=== PATIENT | male | born 1955 | race Caucasian/White ===

== ENCOUNTER 2018-08-25 06:58 | Emergency (ER) | payer OTHER ==
[2018-08-25] MEDS ORDERED: ACETAMINOPHEN 325 MG TABLET ONE (07:38)
--- NOTE | 2018-08-25 08:54 | RAD REPORT ---
EXAM DESCRIPTION: RAD - Ankle Left 3 View - 08/25/2018 8:48 am CLINICAL HISTORY: PAIN COMPARISON: None FINDINGS: Left ankle and left foot - multiple projections are submitted Prominent soft tissue swelling is present particularly laterally. Small avulsion fragment is suspecte d adjacent to the lateral calcaneus. Vascular calcifications are evident. Calcaneal spurs are noted. A fracture of the foot is not detected.
--- NOTE | 2018-08-25 09:10 | RAD REPORT ---
EXAM DESCRIPTION: RAD - Ankle Right 3 View - 08/25/2018 8:50 am CLINICAL HISTORY: Deformity;Pain COMPARISON: No comparisons FINDINGS: Soft tissue swelling is present about the ankle, greatest laterally. No acute fracture or subluxation seen. Mild vascular calcification evident.
--- NOTE | 2018-08-25 09:11 | RAD REPORT ---
EXAM DESCRIPTION: RAD - Knee Right 3 View - 08/25/2018 8:53 am CLINICAL HISTORY: PAIN Fall COMPARISON: No comparisons FINDINGS: No evidence of acute fracture or dislocation. No suprapatellar joint fluid. Mild medial arnoldo int compartment space narrowing is seen.
--- NOTE | 2018-08-25 09:18 | ER ---
Nurse's Notes [facility] Name: Real Montiel Age: 63 yrs Sex: Male : 1955 Arrival Date: 08/25/2018 Time: 06:59 Bed 20 Private MD: Stevan Earl E Diagnosis: Sprain of ankle Presentation: 08/25 07:12 Presenting complaint: Patient states: R knee and L foot pain that began after falling ss from a standing position last night. Pt reports he fel because he is diabetic and his blood sugar was low. Transition of care: patient was not received from another setting of care. Onset of symptoms was August 25, 2018. Risk Assessment: Do you want to hurt yourself or someone else? Patient reports no desire to harm self or others. Initial Sepsis Screen: Does the patient meet any 2 criteria? No. Patient's initial sepsis screen is negative. Does the patient have a suspected source of infection? No. Patient's initial sepsis screen is negative. Note Pt reports that his last BGL was 170's. Care prior to arrival: None. 07:12 Method Of Arrival: Ambulatory ss 07:12 Acuity: GEOFF 4 ss Historical: - Allergies: 07:14 No Known Allergies; ss - PMHx: 07:14 Diabetes - IDDM; Hyperlipidemia; Hypertension; Myocardial infarction; ss - PSHx: 07:14 eyes; Tonsillectomy; Carpal Tunnel Repair; cardiac stent x1; ss - Immunization history:: Adult Immunizations unknown. - Social history:: Smoking status: Patient/guardian denies using tobacco, Patient/guardian denies using alcohol, street drugs, The patient lives with family. - Ebola Screening: : Patient denies exposure to infectious person Patient denies travel to an Ebola-affected area in the 21 days before illness onset. - Family history:: not pertinent. - Hospitalizations: : No recent hospitalization is reported. Screenin:15 Abuse screen: Denies threats or abuse. Denies injuries from another. Nutritional ss screening: No deficits noted. Tuberculosis screening: Never had TB. Fall Risk Fall in past 12 months (25 points). Secondary diagnosis (15 points) diabetic (episodes of dizziness secondary to hypoglycemia). No IV (0 pts). Ambulatory Aid- None/Bed Rest/Nurse Assist (0 pts). Gait- Normal/Bed Rest/Wheelchair (0 pts) Mental Status- Oriented to own ability (0 pts). Assessment: 07:30 General: Appears in no apparent distress. comfortable, Behavior is calm, cooperative. em Pain: Complains of pain in left leg and right leg. Neuro: Level of Consciousness is awake, alert, obeys commands, Oriented to person, place, time, situation. Cardiovascular: Patient's skin is warm and dry. Respiratory: Airway is patent Respiratory effort is even, unlabored, Respiratory pattern is regular, symmetrical. Derm: Skin is intact, Skin is pink, warm \T\ dry. Musculoskeletal: Circulation, motion, and sensation intact. Capillary refill Range of motion: limited in left ankle, right knee and right ankle. 07:35 General: The previous assessment is accurate. Call light remains within reach. at ss bedside.. 08:30 Reassessment: Patient appears in no apparent distress at this time. Patient and/or em family updated on plan of care and expected duration. Pain level reassessed. Patient is alert, oriented x 3, equal unlabored respirations, skin warm/dry/pink. 09:30 Reassessment: Patient appears in no apparent distress at this time. Patient and/or em family updated on plan of care and expected duration. Pain level reassessed. Patient is alert, oriented x 3, equal unlabored respirations, skin warm/dry/pink. Patient states feeling better. Vital Signs: 07:14 BP 149 / 46; Pulse 61; Resp 17; Temp 98.0(TE); Pulse Ox 97% on R/A; Weight 113.4 kg; Height 6 ft. 0 in. (182.88 cm); Pain 10/19; 09:30 BP 138 / 54; Pulse 59; Resp 18; Pulse Ox 99% on R/A; em 07:14 Body Mass Index 33.91 (113.40 kg, 182.88 cm) ss ED Course: 06:59 Patient arrived in ED. am2 06:59 Stevan Earl MD is Private Physician. am2 07:03 Basilio Marcelino MD is Attending Physician. ma2 07:13 Triage completed. ss 07:14 Arm band placed on right wrist. ss 07:15 Patient has correct armband on for positive identification. Placed in gown. Bed in low ss position. Call light in reach. Side rails up X 1. Adult w/ patient. Pulse ox on. NIBP on. 07:15 Patient maintains SpO2 saturation greater than 95% on room air. 07:18 Aldair Persaud LVN is Primary Nurse. em 08:47 X-ray completed. Portable x-ray completed in exam room. Patient tolerated procedure ag1 well. 08:48 XRAY Ankle RIGHT 3 view In Process Unspecified. EDMS 08:48 Knee Right 3 View XRAY In Process Unspecified. EDMS 08:48 Ankle Left 3 View XRAY In Process Unspecified. EDMS 08:48 Foot Left 3 View XRAY In Process Unspecified. EDMS 10:04 No provider procedures requiring assistance completed. Patient did not have IV access em during this emergency room visit. Administered Medications: 07:31 Drug: Tylenol 650 mg Route: PO; em 10:03 Follow up: Response: No adverse reaction; Pain is decreased em Outcome: 09:18 Discharge ordered by . yissel 10:04 Discharged to home with crutches, with family. em 10:04 Condition: good 10:04 Discharge instructions given to patient, family, Instructed on discharge instructions, follow up and referral plans. no drinking with medication, no driving heavy equipment, medication usage, crutch walking, Demonstrated understanding of instructions, follow-up care, medications, crutch walking, Prescriptions given X 1. 10:06 Patient left the ED. em Signatures: Dispatcher [employer] Aldair Brooks LVN LVN em Nneka Ramirez RN RN ss Gallaway, Ashley ag1 Silvia Kuhn am2 Basilio Marcelino MD MD ma2 Corrections: (The following items were deleted from the chart) 08:18 07:30 Musculoskeletal: Range of motion: limited in left ankle, right knee and right em ankle em
--- NOTE | 2018-08-25 09:19 | EDPHYS ---
Physician Documentation [facility] Name: Real Montiel Age: 63 yrs Sex: Male : 1955 Arrival Date: 08/25/2018 Time: 06:59 Bed 20 Private MD: Stevan Earl E ED Physician Basilio Marcelino HPI: 08/25 07:24 This 63 yrs old Male presents to ER via Ambulatory with complaints of Fall ma2 Injury, Foot Pain, Knee Pain. 07:24 Details of fall: The patient fell from an upright position. Onset: The symptoms/episode ma2 began/occurred suddenly, 12 hour(s) ago. Associated injuries: The patient sustained left foot right knee. Severity of symptoms: At their worst the symptoms were moderate. The patient has experienced a previous episode. Historical: - Allergies: 07:14 No Known Allergies; ss - PMHx: 07:14 Diabetes - IDDM; Hyperlipidemia; Hypertension; Myocardial infarction; ss - PSHx: 07:14 eyes; Tonsillectomy; Carpal Tunnel Repair; cardiac stent x1; ss - Immunization history:: Adult Immunizations unknown. - Social history:: Smoking status: Patient/guardian denies using tobacco, Patient/guardian denies using alcohol, street drugs, The patient lives with family. - Ebola Screening: : Patient denies exposure to infectious person Patient denies travel to an Ebola-affected area in the 21 days before illness onset. - Family history:: not pertinent. - Hospitalizations: : No recent hospitalization is reported. ROS: 07:24 Constitutional: Negative for fever, chills, and weight loss, Cardiovascular: Negative ma2 for chest pain, palpitations, and edema, Respiratory: Negative for shortness of breath, cough, wheezing, and pleuritic chest pain, Abdomen/GI: Negative for abdominal pain, nausea, diarrhea, and constipation, Skin: Negative for injury, rash, and discoloration, Neuro: Negative for headache, weakness, numbness, tingling, and seizure, Psych: Negative for depression, anxiety, suicide ideation, homicidal ideation, and hallucinations. 07:24 MS/extremity: Positive for pain, of the right leg and left leg, Negative for bite, contusion, swelling. 07:24 MS/extremity: Positive for tenderness and decreased rom at right knee and left ankle . Exam: 07:24 Constitutional: This is a well developed, well nourished patient who is awake, alert, ma2 and in no acute distress. Chest/axilla: Normal chest wall appearance and motion. Nontender with no deformity. No lesions are appreciated. Cardiovascular: Regular rate and rhythm with a normal S1 and S2. No gallops, murmurs, or rubs. Normal PMI, no JVD. No pulse deficits. Respiratory: Lungs have equal breath sounds bilaterally, clear to auscultation and percussion. No rales, rhonchi or wheezes noted. No increased work of breathing, no retractions or nasal flaring. Abdomen/GI: Soft, non-tender, with normal bowel sounds. No distension or tympany. No guarding or rebound. No evidence of tenderness throughout. Skin: Warm, dry with normal turgor. Normal color with no rashes, no lesions, and no evidence of cellulitis. Neuro: Awake and alert, GCS 15, oriented to person, place, time, and situation. Cranial nerves II-XII grossly intact. Motor strength 5/5 in all extremities. Sensory grossly intact. Cerebellar exam normal. Normal gait. 07:24 Musculoskeletal/extremity: ROM: limited active range of motion, limited passive range of motion, right knee and left ankle, Circulation is intact in all extremities. Sensation intact. Compartment Syndrome exam of affected extremity: is normal. Vital Signs: 07:14 BP 149 / 46; Pulse 61; Resp 17; Temp 98.0(TE); Pulse Ox 97% on R/A; Weight 113.4 kg; ss Height 6 ft. 0 in. (182.88 cm); Pain 1/10; 09:30 BP 138 / 54; Pulse 59; Resp 18; Pulse Ox 99% on R/A; em 07:14 Body Mass Index 33.91 (113.40 kg, 182.88 cm) ss MDM: 07:03 Patient medically screened. ma2 07:24 Differential diagnosis: abrasion, contusion, fracture, multiple trauma, sprain, strain. ma2 09:17 Data reviewed: vital signs, nurses notes, EMS record, lab test result(s), EKG. ma2 Counseling: I had a detailed discussion with the patient and/or guardian regarding: the historical points, exam findings, and any diagnostic results supporting the discharge/admit diagnosis, the presence of at least one elevated blood pressure reading (>120/80) during this emergency department visit, the need for outpatient follow up. Response to treatment: the patient's symptoms have markedly improved after treatment. 08/25 07:20 Order name: XRAY Ankle RIGHT 3 view; Complete Time: 09:16 ma2 08/25 07:20 Order name: Knee Right 3 View XRAY; Complete Time: : ma2 08/25 07:20 Order name: Ankle Left 3 View XRAY; Complete Time: : ma2 08/25 07:20 Order name: Foot Left 3 View XRAY ma2 08/25 09:19 Order name: Post-op Orthopedic Shoe; Complete Time: : ma2 08/25 09:19 Order name: Jack Wrap; Complete Time: : ma2 Administered Medications: 07:31 Drug: Tylenol 650 mg Route: PO; em 10:03 Follow up: Response: No adverse reaction; Pain is decreased em Disposition: 08/25/18 09:18 Discharged to Home. Impression: Sprain of ankle. - Condition is Stable. - Prescriptions for Tylenol- Codeine #3 300-30 mg Oral Tablet - take 2 tablet by ORAL route every 6 hours As needed; 30 tablet. - Medication Reconciliation Form, Thank You Letter, Antibiotic Education, Prescription Opioid Use form. - Follow up: Private Physician; When: Tomorrow; Reason: Continuance of care. Signatures: Dispatcher [employer] EDAldair Girard, CORPORATE TRAFFIC MANAGER CORPORATE TRAFFIC MANAGER Nneka Diop RN RN ss Alzahri, Mohammad, MD MD ma2 Corrections: (The following items were deleted from the chart) 10:06 09:18 08/25/2018 09:18 Discharged to Home. Impression: Sprain of ankle. Condition is em Stable. Forms are Medication Reconciliation Form, Thank You Letter, Antibiotic Education, Prescription Opioid Use. Follow up: Private Physician; When: Tomorrow; Reason: Continuance of care. ma2
[2018-08-25 10:13] VITALS: TEMP 98
[2018-08-25 10:14] VITALS: BP 138/54; O2SAT 99
== END 2018-08-25 10:06 | disposition home or self-care (01) ==
LOC: ER 06:58
DX: S93.402A Sprain of unspecified ligament of left ankle, initial encounter (principal); W19.XXXA Unspecified fall, initial encounter; M25.561 Pain in right knee; M77.32 Calcaneal spur, left foot; M79.9 Soft tissue disorder, unspecified; E11.9 Type 2 diabetes mellitus without complications; E78.5 Hyperlipidemia, unspecified; I10 Essential (primary) hypertension; I25.2 Old myocardial infarction; Z79.4 Long term (current) use of insulin
CPT/HCPCS: 99284

== ENCOUNTER 2021-02-02 16:43 | Inpatient (IN) | payer OTHER ==
--- OUTSIDE RECORDS SUMMARY | 2021-02-02 16:45 | XMS REPORT | Continuity of Care Document ---
:1955 Author Organization [facility] t Address [address] [place] [address] Care Team Providers Name Role Phone Unavailable Unavailable Unavailable Payers Payer Name Policy Type Policy Number Effective Date Expiration Date S ource Problems This patient has no known problems. Allergies, Adverse Reactions, Alerts Allergy Allergy Status Severity Reaction(s) Onset Inactive Treating Comm ents Source Name Type Date Date Clinician No Known DA Active U 2019-0 [facility] Allergie 4-18 Clear s 00:00: Clemons 00 [facility] No Known DA Active U 2004-0 [facility] Drug 8-30 Clear Intolera 00:00: Clemons nces 00 [facility] No Known DA Active U 2004-0 [facility] Contrast 8-30 Clear Allergie 00:00: Clemons s [facility] No Known DA Active U 2004-0 [facility] Drug 8-30 Clear Allergie 00:00: Clemons s [facility] No Known DA Active U 2004-0 [facility] Food 8-30 Clear Allergie 00:00: Clemons s [facility] No Known DA Active U 2004-0 [facility] Other 8-30 Clear Allergie 00:00: Clemons s [facility] Medications This patient has no known medications. Procedures This patient has no known procedures. Results Test Description Test Time Test Comments Results Result Comments Source GLUBED 2019-01-31 08:03:00 Test Item Value Reference Range Interpretation Comme nts GLUBED (test code = GLUBED) 172 MG/DL 70-110 H Performed by certified cinema operator at [facility] [id number] 06:42:00 Test Item Value Reference Range Interpretation Comments GLUBED (test code = 155 MG/DL 70-110 H Performe d by certified GLUBED) cinema operator at [facility] BASIC METABOLIC [id number] 13:04:00 Test Item Value Reference Range Interpretation Comments SODIUM (test code = NA) 141 mEq/L 134-147 N POTASSIUM (test code = 4.0 mEq/L 3.4-5.0 N K) CHLORIDE (test code = 103 mEq/L 100-108 N CL) CARBON DIOXIDE (test 33 mEq/L 21-33 N code = CO2) ANION GAP (test code = 9 0-20 N GAP) GLUCOSE (test code = 182 mg/dL 70-110 H GLU) BLOOD UREA NITROGEN 17 mg/dL 7-18 N (test code = BUN) GLOMERULAR FILTRATION 75.7 80-90 L Units of measure = RATE (test code = GFR) ml/mi n/1.73 m2 CREATININE (test code = 1.0 mg/dL 0.6-1.3 N CREAT) CALCIUM (test code = 8.7 mg/dL 8.0-10.5 N CA) CBC W/AUTO [id number] 13:01:00 Test Item Value Reference Range Interpretation Comments WHITE BLOOD CELL (test code = 6.17 x10 3/uL 4.5-11.0 N WBC) RED BLOOD CELL (test code = 4.86 x10 6/uL 4.00-5.60 N RBC) HEMOGLOBIN (test code = HGB) 14.8 g/dL 12.5-16.9 N HEMATOCRIT (test code = HCT) 42.5 % 37.5-50.7 N MEAN CELL VOLUME (test code = 87.4 fL 81.0-99.0 N MCV) MEAN CELL HGB (test code = MCH) 30.5 pg 27.0-33.0 N MEAN CELL HGB CONCETRATION 34.8 g/dL 33.0-37.0 N (test code = MCHC) RED CELL DISTRIBUTION WIDTH CV 12.0 % 11.5-14.5 N (test code = RDW) RED CELL DISTRIBUTION WIDTH SD 38.6 fL 37.0-54.0 N (test code = RDW-SD) PLATELET COUNT (test code = 235 x10 3/uL 150-400 N PLT) MEAN PLATELET VOLUME (test code 9.3 fL 7.0-9.0 H = MPV) NEUTROPHIL % (test code = NT%) 54.8 % 56.0-77.0 L IMMATURE GRANULOCYTE % (test 0.2 % 0.0-2.0 N code = IG%) LYMPHOCYTE % (test code = LY%) 29.2 % 14.0-32.0 N MONOCYTE % (test code = MO%) 10.7 % 4.8-9.0 H EOSINOPHIL % (test code = EO%) 4.5 % 0.3-3.7 H BASOPHIL % (test code = BA%) 0.6 % 0.0-2.0 N NUCLEATED RBC % (test code = 0.0 % 0-0 N NRBC%) NEUTROPHIL # (test code = NT#) 3.38 x10 3/uL 2.0-7.6 N IMMATURE GRANULOCYTE # (test 0.01 x10 3/uL 0.00-0.03 N code = IG#) LYMPHOCYTE # (test code = LY#) 1.80 x10 3/uL 1.0-3.8 N MONOCYTE # (test code = MO#) 0.66 x10 3/uL 0.1-0.8 N EOSINOPHIL # (test code = EO#) 0.28 x10 3/uL 0.0-0.2 H BASOPHIL # (test code = BA#) 0.04 x10 3/uL 0.0-0.2 N NUCLEATED RBC # (test code = 0.00 x10 3/uL 0.0-0.1 N NRBC#) MANUAL DIFF REQUIRED (test code NO = MDIFF) - XR CHEST 2 [id number] 12:26:00 FAX: Stevan Barnett Jr [phone] [place]: St: PRE FAX: Pedrito Hill Jr [phone] Name: SUAD MOTA [facility] Fredy Clemons : 1955 Age/S: 63/M [address] [place] [address] Unit #: [id number] Loc: [place] [address] Phys: Pedrito Odonnell Jr, MD Acct: G [id number] Dis Date: Status: PRE SDC PHONE #: [phone] Exam Date: 01/26/2019 1226 FAX #: [phone] Reason: LT WRIST DE QUERVAIN RELEASE EXAMS: CPT CODE: [id number] XR CHEST 2 V [id number] Patient Name: SUAD MOTA : 1955; Age: 63 years y/o Male MR: [id number] Study: - XR CHEST 2 V 01/26/2019 11:34 AM Ordering Physician: Pedrito Odonnell Jr, MD Comparison: None Clinical Indication: Preoperative clearance; LT WRIST DE QUERVAIN RELEASE Lungs are clear. Cardiomediastinal silhouette normal. No consolidation or pleural fluid collection is noted. Bony thorax grossly intact. No pulmonary venous vascular congestion. IMPRESSION: No acute cardiopulmonary process. SL: [id number] at 1226 Reported and signed by: Anand Hager M.D. CC: Stevan Earl Jr, MD; Pedrito Odonnell Jr, MD Technologist: Teetee Zepeda, RT(R), RTT Trnscrd Date/Time/By: 01/26/2019 (1222) : By: [email or web address] Orig Print D/T: S: 01/26/2019 ([id number]) PAGE 1 Signed Report
[2021-02-02] MEDS ORDERED: D50W 50 ML IV ONE (17:19)
--- NOTE | 2021-02-02 17:49 | RAD REPORT ---
EXAM DESCRIPTION: CT - Head C Spine Mpr Wo Con - 02/02/2021 5:27 pm CLINICAL HISTORY: Head and neck injury status post fall. Head and neck pain. Syncope COMPARISON: 2014 TECHNIQUE: Computed axial tomography of the head and cervical spine was obtained. Sagittal and coronal reconstruction was performed. All CT scans are performed using dose optimization technique as appropriate and may include automated exposure control or mA/KV adjustment according to patient size. FINDINGS: An intracranial bleed is not seen. The ventricles are normal in caliber. An extra-axial fl uid collection is not noted.Fluid within the visualized sinuses and mastoids is not seen A cervical fracture is not visualized. No dislocation is noted. Spondylosis involves the spine IMPRESSION: No acute intracranial abnormality is seen. A cervical fracture is not visualized. If the patient continues to have symptoms to suggest intracra nial /spinal cord pathology then MRI would be recommended
[2021-02-02 18:11] LABS: Absolute Lymphocytes (CBC) 0.9 K/uL (0.7-4.9); Basophils % 0.2 % (0-1.3); Lymphocytes % 6.9 % (15.3-44.8); MPV 7.9 fL (7.6-11.3)
[2021-02-02 18:12] LABS: Protime INR 1.11
[2021-02-02 18:24] LABS: Albumin 3.8 g/dL (3.4-5.0); Bilirubin Direct 0.3 mg/dL (0-0.2); Bilirubin Total 0.9 mg/dL (0.2-1.0); Magnesium 2.3 mg/dL (1.8-2.4); Potassium 3.4 mmol/L (3.5-5.1); Protein, Total 8.1 g/dL (6.4-8.2); Troponin (Emerg Dept Use Only) 0.11 ng/mL (0.0-0.045)
[2021-02-02] MEDS ORDERED: ASPIRIN 81 MG CHEWABLE TABLET ONE (19:03)
[2021-02-02] MEDS ORDERED: ENOXAPARIN 100 MG/ML SYR SQ ONE (19:19)
[2021-02-02] MEDS ORDERED: FUROSEMIDE 40 MG/4 ML VIAL ONE (19:19)
--- NOTE | 2021-02-02 19:21 | ER ---
Nurse's Notes [facility] Name: Real Montiel Age: 65 yrs Sex: Male : 1955 Arrival Date: 02/02/2021 Time: 16:50 Bed 5 Private MD: Diagnosis: Syncope and collapse;Elevated Troponin Presentation: 02/02 16:53 Chief complaint: EMS states: Toned out for hypoglycemia, BGL 27 on arrival, gave 250 mL jl7 of D10, BGL went up to 116 then down to 68 just prior to arrival. Pt did hit his head, did loose consciousness and takes Plavix. Care prior to arrival: IV initiated. 20 GA, in the left upper arm Glucose check: 27. Care prior to arrival: Medication(s) given: D10, 250 mL Glucose check: 68. Mechanism of Injury: Fall from standing position. Trauma event details: Injury occurred in the [facility], Injury occurred: at home. Injury occurred: February 02, 2021 Injury occurred at: 16:30. 16:53 Acuity: GEOFF 2 jl7 16:53 Method Of Arrival: EMS: [facility] jl7 17:03 Coronavirus screen: Client denies travel out of the [place] in the last 14 days. Ebola jl7 Screen: No symptoms or risks identified at this time. Initial Sepsis Screen: Does the patient meet any 2 criteria? No. Patient's initial sepsis screen is negative. Does the patient have a suspected source of infection? No. Patient's initial sepsis screen is negative. Risk Assessment: Do you want to hurt yourself or someone else? Patient reports no desire to harm self or others. Onset of symptoms was February 02, 2021 at 16:30. Trauma Activation: Alert Physician: ED Physician; Name: Wesley CASTRO, Jayleen PA; Notified At: 16:50; Arrived At: 16:50 Physician: General Surgeon; Name: ; Notified At: 16:50; Arrived At: Physician: Radiology; Name: ; Notified At: 16:50; Arrived At: Physician: Respiratory; Name: ; Notified At: 16:50; Arrived At: Physician: Lab; Name: ; Notified At: 16:50; Arrived At: Historical: - Allergies: 17:05 No Known Allergies; jl7 - PMHx: 17:05 Diabetes - IDDM; Diabetes Type 1; Hyperlipidemia; Hypertension; Myocardial infarction; jl7 - PSHx: 17:05 eyes; Tonsillectomy; Carpal Tunnel Repair; cardiac stent x1; jl7 - Immunization history:: Adult Immunizations unknown. - Social history:: Smoking status: unknown. Screenin:53 Abuse screen: Denies threats or abuse. Denies injuries from another. Tuberculosis jl7 screening: No symptoms or risk factors identified. 17:05 Nutritional screening: No deficits noted. Fall Risk IV access (20 points). Total Quiros jl7 Fall Scale indicates No Risk (0-24 pts). Primary Survey: 16:53 NO uncontrolled hemorrhage observed. Breathing/Chest: Respiratory pattern: regular, jl7 Respiratory effort: spontaneous, unlabored, Chest inspection: symmetrical rise and fall of the chest. Circulation: Cardiac rhythm: sinus rhythm Pulses: palpable right radial artery and left radial artery. Skin color: pink, Skin temperature: warm. Disability Alert. Exposure/Environment: There is no evidence of uncontrolled external bleeding. Obvious injury(ies) are noted at this time: minor abrasions A warming method has been applied: A warm blanket has been provided to the patient. 17:50 Reassessment Airway Airway Patent Oxygen No O2 Oral cavity Clear Trachea Midline jd3 Breathing/Chest Respiratory pattern Regular Respiratory effort Spontaneous Unlabored Chest inspection Symmetrical Circulation Heart rhythm Sinus rhythm Color [place] Temperature Warm Disability Alert. Assessment: 16:53 General: Appears in no apparent distress. uncomfortable, Behavior is calm, cooperative, jl7 appropriate for age. Pain: Denies pain. Neuro: Level of Consciousness is awake, alert, obeys commands, Oriented to person, place, time, situation. Cardiovascular: Patient's skin is warm and dry. Respiratory: Airway is patent Respiratory effort is even, unlabored, Respiratory pattern is regular, symmetrical. Derm: Skin is pink, warm \T\ dry. Injury Description: Abrasion sustained to forehead, left side of the back of head and right hand is dirty, was sustained 30-60 minutes ago. 17:23 Reassessment: Patient appears in no apparent distress at this time. No changes from jd3 previously documented assessment. Patient and/or family updated on plan of care and expected duration. Pain level reassessed. Patient is alert, oriented x 3, equal unlabored respirations, skin warm/dry/pink. Neuro: Level of Consciousness is awake, alert, obeys commands, Oriented to person, place, time, situation. 18:25 Reassessment: Patient appears in no apparent distress at this time. Patient and/or jd3 family updated on plan of care and expected duration. Pain level reassessed. Patient is alert, oriented x 3, equal unlabored respirations, skin warm/dry/pink. Patient denies pain at this time. 22:15 Reassessment: Patient and/or family updated on plan of care and expected duration. Pain ea level reassessed. Patient is alert, oriented x 3, equal unlabored respirations, skin warm/dry/pink. Report given to receiving nurse on fourth floor. Vital Signs: 16:53 BP 129 / 106; Pulse 71; Resp 17; Temp 97.7; Pulse Ox 95% ; Weight 117.93 kg; Height 6 jl7 ft. 1 in. (185.42 cm); Pain 0/10; 18:25 Pulse 83; Resp 17 S; Pulse Ox 97% on R/A; jd3 16:53 Body Mass Index 34.30 (117.93 kg, 185.42 cm) jl7 Julieth Coma Score: 16:53 Eye Response: spontaneous(4). Verbal Response: oriented(5). Motor Response: obeys jl7 commands(6). Total: 15. Trauma Score (Adult): 16:53 Eye Response: spontaneous(1); Verbal Response: oriented(1); Motor Response: obeys jl7 commands(2); Systolic BP: > 89 mm Hg(4); Respiratory Rate: 10 to 29 per min(4); [place] Score: 15; Trauma Score: 12 ED Course: 16:50 Patient arrived in ED. aa5 16:52 Tyson Olson MD is Attending Physician. fariha 16:53 Patient has correct armband on for positive identification. Bed in low position. Call jl7 light in reach. Side rails up X 1. 16:53 Patient maintains SpO2 saturation greater than 95% on room air. Thermoregulation: warm jl7 blanket given to patient. 16:55 [facility] cp 16:56 Triage completed. jl7 16:57 Beaulieu, James, RN is Primary Nurse. jd3 17:05 Arm band placed on right wrist. jl7 17:05 devulcanizer head on. Pulse ox on. NIBP on. jl7 17:21 Side rails up X2. Adult w/ patient. Pillow given. devulcanizer head on. Pulse ox on. NIBP mh5 on. 17:21 EKG done, by ED staff, reviewed by Tyson Olson MD. mh5 17:27 CT Head C Spine In Process Unspecified. EDMS 18:57 XRAY Chest (1 view) In Process Unspecified. EDMS 19:20 Raúl Barraza MD is Hospitalizing Provider. cp 22:14 No provider procedures requiring assistance completed. Patient admitted, IV remains in ea place. Administered Medications: 17:28 Drug: D50W 50 ml Route: IVP; Site: left upper arm; jd3 18:20 Follow up: Response: No adverse reaction jd3 18:54 Drug: Aspirin Chewable Tablet 324 mg Route: PO; jd3 19:25 Drug: Lovenox (enoxaparin) 1 mg/kg Route: Sub-Q; Site: abdomen; rv 19:25 Drug: Lasix (furosemide) 40 mg Route: IVP; Site: left upper arm; rv Outcome: 19:21 Decision to Hospitalize by Provider. cp 22:14 Admitted to Med/surg accompanied by tech, room 431, with chart, Report called to ea Receiving nurse on fourth floor 22:14 Condition: stable 22:14 Instructed on the need for admit, Demonstrated understanding of instructions. 22:19 Patient left the ED. ea Signatures: Dispatcher [employer] Tyson Anton MD MD cha Calderon, Audri, RN RN aa5 Tyson Clemens PA PA Argelia Mina 5 Rosalba Argueta RN RN jl7 Dulce Leigh RN RN James Martinez, RN RN Alex Siu, RN RN rv
--- NOTE | 2021-02-02 19:21 | EDPHYS ---
Physician Documentation [facility] Name: Real Montiel Age: 65 yrs Sex: Male : 1955 Arrival Date: 02/02/2021 Time: 16:50 Bed 5 Private MD: ED Physician Tyson Olson HPI: 02/02 17:00 This 65 yrs old Male presents to ER via EMS with complaints of low blood cp sugar. 17:00 The patient has experienced syncope, lost consciousness. cp 17:00 Onset: The symptoms/episode began/occurred today, at an unknown time. Duration: This cp was a single episode, that lasted an unknown period of time. Context: the episode(s) was witnessed, by no one, the downtime is unknown, occurred at home, Just prior to the episode the patient experienced unknown symptoms. Associated injury: Head/face: lower lip, contusion. Current symptoms: Currently, the patient is not experiencing any symptoms. Patient found by family member after hospitalized asked to check on patient. EMS reports blood sugar level of 37 upon arrival. Historical: - Allergies: 17:05 No Known Allergies; jl7 - PMHx: 17:05 Diabetes - IDDM; Diabetes Type 1; Hyperlipidemia; Hypertension; Myocardial infarction; jl7 - PSHx: 17:05 eyes; Tonsillectomy; Carpal Tunnel Repair; cardiac stent x1; jl7 - Immunization history:: Adult Immunizations unknown. - Social history:: Smoking status: unknown. ROS: 17:05 Constitutional: Negative for body aches, chills, fever, poor PO intake. cp 17:05 Eyes: Negative for injury, pain, redness, and discharge. cp 17:05 Cardiovascular: Positive for edema, Negative for chest pain, palpitations. 17:05 Respiratory: Negative for cough, shortness of breath, wheezing. 17:05 Abdomen/GI: Negative for abdominal pain, nausea, vomiting, and diarrhea, black/tarry stool, rectal bleeding. 17:05 Back: Negative for pain at rest, pain with movement. 17:05 : Negative for urinary symptoms. 17:05 Neuro: Positive for syncope, Negative for altered mental status, dizziness, weakness. 17:05 All other systems are negative. Exam: 17:10 Constitutional: The patient appears in no acute distress, alert, awake, cp non-diaphoretic, non-toxic, well developed, well nourished, obese. 17:10 Head/Face: Normocephalic, atraumatic. cp 17:10 Eyes: Periorbital structures: appear normal, Pupils: equal, round, and reactive to light and accomodation, Extraocular movements: intact throughout, Conjunctiva: normal, no exudate, no injection, Sclera: no appreciated abnormality, Lids and lashes: appear normal, bilaterally. 17:10 ENT: External ear(s): are unremarkable, Nose: is normal, Mouth: Lips: mild swelling noted to lower lip, Posterior pharynx: Airway: no evidence of obstruction, patent. 17:10 Neck: C-spine: vertebral tenderness, is not appreciated, crepitus, is not appreciated, ROM/movement: is normal, is supple, without pain, no range of motions limitations. 17:10 Chest/axilla: Inspection: normal, Palpation: is normal, no crepitus, no tenderness. 17:10 Cardiovascular: Rate: normal, Rhythm: regular, Edema: ankle edema, that is mild, JVD: is not appreciated. 17:10 Respiratory: the patient does not display signs of respiratory distress, Respirations: normal, no use of accessory muscles, no retractions, labored breathing, is not present, Breath sounds: decreased breath sounds, are not appreciated, stridor, is not appreciated, wheezing: is not appreciated. 17:10 Abdomen/GI: Inspection: abdomen appears normal, Palpation: abdomen is soft and non-tender, in all quadrants. 17:10 Back: pain, is absent, ROM is normal. 17:10 Neuro: Orientation: to person, place \T\ time. Mentation: is normal, Cerebellar function: is grossly normal, Motor: moves all fours, strength is normal, Sensation: is normal. 17:23 ECG was reviewed by the Attending Physician. cp 18:50 : Rectal exam: Guaiac testing: results were negative for occult blood. cp Vital Signs: 16:53 BP 129 / 106; Pulse 71; Resp 17; Temp 97.7; Pulse Ox 95% ; Weight 117.93 kg; Height 6 jl7 ft. 1 in. (185.42 cm); Pain 0/10; 18:25 Pulse 83; Resp 17 S; Pulse Ox 97% on R/A; jd3 16:53 Body Mass Index 34.30 (117.93 kg, 185.42 cm) jl7 Julieth Coma Score: 16:53 Eye Response: spontaneous(4). Verbal Response: oriented(5). Motor Response: obeys jl7 commands(6). Total: 15. Trauma Score (Adult): 16:53 Eye Response: spontaneous(1); Verbal Response: oriented(1); Motor Response: obeys jl7 commands(2); Systolic BP: > 89 mm Hg(4); Respiratory Rate: 10 to 29 per min(4); Julieth Score: 15; Trauma Score: 12 MDM: 16:52 Patient medically screened. fariha 19:00 Data reviewed: vital signs, nurses notes, lab test result(s), EKG, radiologic studies, cp CT scan, plain films. 19:00 Test interpretation: by ED physician or midlevel provider: ECG, plain radiologic cp studies. Counseling: I had a detailed discussion with the patient and/or guardian regarding: the historical points, exam findings, and any diagnostic results supporting the discharge/admit diagnosis, lab results, radiology results, the need for further work-up and treatment in the hospital. 02/02 16:57 Order name: Basic Metabolic Panel 02/02 16:57 Order name: CBC with Diff cp 02/02 16:57 Order name: LFT's cp 02/02 16:57 Order name: Magnesium cp 02/02 16:57 Order name: NT PRO-BNP cp 02/02 16:57 Order name: PT-INR cp 02/02 16:57 Order name: Troponin (emerg Dept Use Only) cp 02/02 16:57 Order name: CK cp 02/02 16:57 Order name: Urine Microscopic Only cp 02/02 16:57 Order name: Basic Metabolic Panel; Complete Time: 18:39 EDMS 02/02 18:39 Interpretation: Normal except: K 3.4; BUN 20; GFR 68. cp 02/02 16:57 Order name: CBC with Automated Diff; Complete Time: 18:39 EDMS 02/02 18:39 Interpretation: Normal except: WBC 12.60; MCV 89.0; LAILA% 85.0; LYM% 6.9; NEUT A 10.8. cp 02/02 16:57 Order name: Liver (Hepatic) Function; Complete Time: 18:39 EDMS 02/02 16:57 Order name: Magnesium; Complete Time: 18:39 EDMS 02/02 16:57 Order name: NT PRO-BNP; Complete Time: 18:39 EDNE 02/02 16:50 Order name: Diet Regular; Complete Time: 16:51 aa5 02/02 16:57 Order name: XRAY Chest (1 view); Complete Time: 19:32 cp 02/02 19:32 Interpretation: Report reviewed. 02/02 16:57 Order name: EKG; Complete Time: 16:58 02/02 16:57 Order name: Cardiac monitoring; Complete Time: 16:58 cp 02/02 16:57 Order name: Protime (+INR); Complete Time: 18:39 EDNE 02/02 16:57 Order name: Troponin (Emerg Dept Use Only); Complete Time: 18:39 EDNE 02/02 18:46 Interpretation: Abnormal: TROPED 0.11. 02/02 16:57 Order name: Creatine Phosphokinase; Complete Time: 18:39 EDNE 02/02 16:59 Order name: Diet Ada 2000 Rios; Complete Time: 16:59 02/02 16:59 Order name: CT Head C Spine; Complete Time: 18:02 02/02 18:02 Interpretation: Reviewed report. 02/02 17:17 Order name: Glucose, Ancillary Testing; Complete Time: 17:41 EDNE 02/02 20:52 Order name: SARS-COV-2 RT PCR [facility] 02/02 16:57 Order name: EKG - Nurse/Tech; Complete Time: 17:18 02/02 16:57 Order name: IV Saline Lock; Complete Time: 16:58 02/02 16:57 Order name: Labs collected and sent; Complete Time: 17:19 02/02 16:57 Order name: O2 Per Protocol; Complete Time: 16:58 02/02 16:57 Order name: O2 Sat Monitoring; Complete Time: 16:58 02/02 16:57 Order name: Urine Dipstick-Ancillary (obtain specimen); Complete Time: 16:58 cp EC:23 Rate is 61 beats/min. Rhythm is regular. ND interval is normal. QRS interval is normal. cp QT interval is normal. T waves are Inverted in lead aVR. Interpreted by me. Reviewed by me. Administered Medications: 17:28 Drug: D50W 50 ml Route: IVP; Site: left upper arm; jd3 18:20 Follow up: Response: No adverse reaction jd3 18:54 Drug: Aspirin Chewable Tablet 324 mg Route: PO; jd3 19:25 Drug: Lovenox (enoxaparin) 1 mg/kg Route: Sub-Q; Site: abdomen; rv 19:25 Drug: Lasix (furosemide) 40 mg Route: IVP; Site: left upper arm; rv Disposition: 02/03 07:06 Co-signature as Attending Physician, Tyson Olson MD I agree with the assessment and fariha plan of care. Disposition: 02/02/21 19:21 Hospitalization ordered by Raúl Barraza for Inpatient Admission. Preliminary diagnosis are Syncope and collapse, Elevated Troponin. - Bed requested for Telemetry/MedSurg (Inpatient). - Status is Inpatient Admission. ea - Condition is Stable. - Problem is new. - Symptoms have improved. Signatures: Dispatcher [employer] [facility] Iman Jones, RN Tyson Santos MD MD cha Page, Corey, PA PA Rosalba Ffoana, RN RN jl7 Dulce Leigh RN James Weston ea RN RN jd3 Alex Brown RN RN rv Corrections: (The following items were deleted from the chart) 02/02 19:53 19:27 CORONAVIRUS+ ordered. [facility] EDMS 21:34 19:21 Hospitalization Ordered by Raúl Barraza MD for Inpatient Admission. Preliminary dw diagnosis is Syncope and collapse; Elevated Troponin. Bed requested for Telemetry/MedSurg (Inpatient). Status is Inpatient Admission. Condition is Stable. Problem is new. Symptoms have improved. cp 22:19 21:34 02/02/2021 19:21 Hospitalization Ordered by Raúl Barraza MD for Inpatient ea Admission. Preliminary diagnosis is Syncope and collapse; Elevated Troponin. Bed requested for Telemetry/MedSurg (Inpatient). Status is Inpatient Admission. Condition is Stable. Problem is new. Symptoms have improved. dw
--- NOTE | 2021-02-02 19:27 | RAD REPORT ---
EXAM DESCRIPTION: Davida Single View02/02/2021 6:57 pm CLINICAL HISTORY: Hypoglycemia. Hypertension COMPARISON: 2016 FINDINGS: The lungs appear clear of acute infiltrate. The heart is normal size IMPRESSION: No acute abnormalities displayed
[2021-02-02] MEDS ORDERED: ONDANSETRON 4 MG/2 ML VIAL IV PRN (23:09)
[2021-02-02] MEDS ORDERED: ATORVASTATIN 40 MG TAB PO SCH (23:09)
--- NOTE | 2021-02-02 23:30 | P.HP ---
Certification for Inpatient Patient admitted to: Inpatient With expected LOS: >2 Midnights Patient will require the following post-hospital care: None Practitioner: I am a practitioner with admitting privileges, knowledge of patient current condition, hospital course, and medical plan of care. Services: Services provided to patient in accordance with Admission requirements found in Title 42 Section 412.3 of the Code of Federal Regulations Patient History Date of Service: 02/02/21 Primary Care Provider: Dr. otero Reason for admission: NSTEMI, hypoglycemia History of Present Illness: 65-year-old male with history of diabetes mellitus type 2, hyperlipidemia, hypertension, CAD with previous stent presents emergency department after syncopal episode. Patient was out working in the [place] and noticed that his CGM was alarming for hypoglycemia, patient went into the house and was trying to find something to eat when he evidently passed out, patient's family had not heard from him and eventually went to check, is possible that he was unconscious for between 1 and 2 hr. Upon EMS arrival patient's blood sugar was in the 20s. Patient is given dextrose in transport to the hospital for evaluation in the emergency department. Chest x-ray, CT head C-spine negative for any acute findings. Lab significant for white blood cell count 12.6 potassium 3.4 glucose 106 troponin 0.11 BNP 306. Patient also noted to have bilateral lower extremity edema, patient reports that he has had swelling to this lower extremities for the past few years and was told by his primary care physician and actuarial consultant this is likely related to venous insufficiency and not related to his heart. Patient reports his last echocardiogram was approximately 3 years prior and he was told that it was normal. ED provider wishes to admit forNSTEMI, hypoglycemia. Allergies No Known Drug Allergies Allergy (Unknown, Verified 10/26/16 03:49) NKA No Known Allergies Allergy (Uncoded 10/29/16 22:15) Unknown Home Medications: Aspirin 81 mg PO DAILY 07/30/14 Atorvastatin Calcium [Lipitor*] 20 mg PO BEDTIME 07/30/14 Clopidogrel Bisulfate [Clopidogrel] 75 mg PO DAILY 07/30/14 Irbesartan [Avapro] 300 mg PO BEDTIME 07/30/14 [place]-3S/Dha/Epa/Fish Oil [Fish Oil 1,200 mg Softgel] 1,200 mg PO DAILY 07/30/14 Cefuroxime Axetil [Ceftin] 500 mg PO BID #10 tablet 10/28/16 - Past Medical/Surgical History Diabetic: Yes -: HTN -: Neuropathy -: [place] 2003 -: Diabetes mellitus type 2 -: Cardiac stents 2003 Psychosocial/ Personal History: Patient is retired, lives with family - Family History Father -: Heart disease, Lung disease, Cancer Notes: Colon cancer Mother -: Hypertension, Diabetes, Stroke, Cancer Notes: Breast cancer - Social History Smoking Status: Never smoker Alcohol use: No CD- Drugs: No Caffeine use: Yes Place of Residence: Home Review of Systems Unremarkable Physical Examination - Vital Signs Temperature: 97.7 F Blood Pressure: 129/106 Pulse: 83 Respirations: 17 - Physical Exam General: Alert, In no apparent distress HEENT: Atraumatic, PERRLA, Mucous membr. moist/pink Neck: Supple, 2+ carotid pulse no bruit, No LAD Respiratory: Clear to auscultation bilaterally, Normal air movement Cardiovascular: Regular rate/rhythm, Normal S1 S2 Gastrointestinal: Normal bowel sounds, No tenderness Musculoskeletal: No tenderness Integumentary: No rashes Neurological: Normal speech, Normal strength at 5/5 x4 extr, Normal tone, Normal affect - Studies Laboratory Data (last 24 hrs) 02/02/21 17:48: PT 12.8 H, INR 1.11 02/02/21 17:48: WBC 12.60 H, Hgb 16.2, Hct 48.0, Plt Count 227 02/02/21 17:48: Sodium 143, Potassium 3.4 L, BUN 20 H, Creatinine 1.09, Glucose 106, Magnesium 2.3, Total Bilirubin 0.9, AST 39 H, ALT 33, Alkaline Phosphatase 93 Assessment and Plan - Plan Assessment NSTEMI-history of CAD with previous stents Diabetes mellitus type 2 with hypoglycemia and syncope Hypertension Hyperlipidemia Plan NSTEMI-history of CAD with previous stents: Continue with full-dose Lovenox, monitor on telemetry, trend troponins, obtain and continue home medications. Cardiology consult in place. Diabetes mellitus type 2 with hypoglycemia and syncope: Continue to monitor patient's blood glucose level closely, patient reports that he has an insulin pump, this was discontinued upon arrival to the emergency department blood sugar has remained stable. Hypertension: Continue home medications as appropriate Hyperlipidemia: Continue home medications as appropriate. Discharge Plan: Home Plan to discharge in: 48 Hours - Advance Directives Does patient have a Living Will: No Does patient have a Durable POA for Healthcare: Yes - Code Status/Comfort Care Code Status Assessed: Yes (Full code) Critical Care: No Time Spent Managing Pts Care (In Minutes): 55
[2021-02-03] MEDS: INSULIN -REGULAR HUMAN 50 UNIT/0.5 ML ML SQ SCH ×4 (00:41→16:01)
[2021-02-03 05:20] LABS: Absolute Lymphocytes (CBC) 1.2 K/uL (0.7-4.9); Basophils % 0.4 % (0-1.3); Hematocrit 40.2 % (39.6-49.0); Lymphocytes % 12.3 % (15.3-44.8); MPV 8.7 fL (7.6-11.3); RBC Red Blood Cell Count 4.56 M/uL (4.33-5.43)
[2021-02-03 05:26] LABS: Albumin 3.1 g/dL (3.4-5.0); Bilirubin Total 0.9 mg/dL (0.2-1.0); Magnesium 1.9 mg/dL (1.8-2.4); Potassium 3.6 mmol/L (3.5-5.1); Protein, Total 6.5 g/dL (6.4-8.2); Thyroid Stimulating Hormone 1.1 uIU/mL (0.360-3.740)
[2021-02-03 05:29] LABS: Troponin I 1.27 ng/mL (0.0-0.045)
[2021-02-03 06:09] VITALS: BMI 27.1
[2021-02-03] MEDS ORDERED: Enoxaparin 120 MG/0.8 ML SYR SQ SCH ×2 (07:00)
[2021-02-03 07:26] LABS: Urine Appearance CLEAR (Clear); Urine Bilirubin NEGATIVE (Negative); Urine Blood NEGATIVE (Negative); Urine Color YELLOW (Yellow); Urine Glucose TRACE (Negative); Urine Protein NEGATIVE (Negative); Urine Urobilinogen 0.2 mg/dL (0.2-1.0)
[2021-02-03 07:48] LABS: Urine Microscopic Reflex NO UMIC
[2021-02-03] MEDS ORDERED: PNEUMOCOCCAL VACCINE 0.5 ML IMVAC ONE (09:00)
[2021-02-03] MEDS ORDERED: ASPIRIN EC 81 MG TAB PO SCH (09:00)
[2021-02-03] MEDS ORDERED: CLOPIDOGREL 75 MG TABLET PO SCH ×2 (09:00)
[2021-02-03] MEDS ORDERED: DOCOSAHEXANOIC AC/EPA 1000 MG PO SCH (09:00)
[2021-02-03] MEDS ORDERED: ASPIRIN 81 MG CHEWABLE TABLET PO SCH (09:00)
[2021-02-03 09:13] VITALS: O2SAT 95
--- NOTE | 2021-02-03 10:21 | RAD REPORT ---
EXAM DESCRIPTION: US - Extrem Venous W Compress Tomasz - 02/03/2021 10:01 am CLINICAL HISTORY: LE EDEMA TOMASZ COMPARISON: None. TECHNIQUE: Real-time sonographic evaluation of the bilateral lower extremity common femoral, superfi cial femoral, popliteal and posterior tibial veins was performed. FINDINGS: Normal compressibility, flow augmentation, phasic flow and spontaneous flow are identified in the left and right lower extremity common femoral, superficial femoral, popliteal and posterior t ibial veins. No intraluminal filling defects seen. IMPRESSION: No DVT in either lower extremity.
--- NOTE | 2021-02-03 11:14 | EKG ---
Test Date: 2021-02-02 Test Time: 17:17:47 Insurance Job Titles: [employer] MEASUREMENT RESULTS: Intervals: Rate: 61 HI: 180 QRSD: 82 QT: 438 QTc: 440 [place]: P: 65 HI: 180 QRS: 41 T: 55 INTERPRETIVE STATEMENTS: Normal sinus rhythm Normal ECG Compared to ECG 10/25/2016 15:37:29 Sinus bradycardia no longer present Sinus arrhythmia no longer present Electronically Signed On 02-03-21 11:13:25 CDT by Juan Pablo Donohue
[2021-02-03] MEDS ORDERED: POTASSIUM CL SA 10 MEQ TAB PO ONE (11:28)
--- NOTE | 2021-02-03 12:17 | CON ---
Date of Consultation: 02/03/2021 Reason For Consultation: The patient was admitted on 02/02/[address] Palencia' service. I saw the p atient on 02/03/2021 because of elevated troponin. History Of Present Illness: Mr. Montiel is a 65-year-old white male. He has a history of CAD status po st stent, diabetes, hypertension, dyslipidemia. He came in because of hypoglycemia and syncope. Den ied chest pain, nausea, vomiting, diaphoresis, PND, orthopnea, pedal edema, or palpitation. Denied a ny fever or chills. Troponin was positive at . He had a white count of 12,000. His gluco se was 272. His BNP was 306. EKG was normal. Chest x-ray was normal. CT of the head and cervical spine was normal. He stated that blood pressure was 180 systolic. Allergies: NONE. Review of Systems: Negative. Social History: Negative. Family History: Noncontributory. Medications: At home include aspirin, Lipitor, Plavix, Avapro, and fish oil. Physical Examination: General: Very pleasant. HEENT: Negative. Vital Signs: Stable, afebrile, sinus rhythm. Chest: Clear to auscultation and percussion. Cardiac: Revealed a regular rhythm and rate. No murmurs, gallops, or rubs. Abdomen: Benign. Extremities: Revealed no clubbing. Diagnostic Data: As stated earlier. Impression And Plan: Elevated troponin probably secondary to hypotension, hypertension, or hypoglyce rao. The patient has no chest pain. He has a normal EKG. I am doing a catheterization o n him only based on the troponin. I would recommend a 2D echocardiogram today and if it is normal, I will send him home and have him do a stress test. He is due for 1 this year anyway. His other prob lems diabetes, hypertension, dyslipidemia appeared to be controlled right now. It may be reasonable to increase the dose of Avapro or add a diuretic to his regimen. He should continue his aspirin, Lip itor, and fish oil. I will discuss the case with Dr. Palencia after the echocardiogram today. NB/MODL Voice ID: [id number] Report ID: [id number]
--- NOTE | 2021-02-03 13:55 | P.DS ---
Admission Date: 02/02/21 Discharge Date: 02/03/21 Primary Care Provider: Dr. Earl; Cardiology-Dr. Donohue Disposition: ROUTINE DISCHARGE Discharge Condition: GOOD Reason for Admission: NSTEMI, hypoglycemia Consultations: Cardiology-Dr. Donohue Procedures: COVID: Negative CT scan: FINDINGS: An intracranial bleed is not seen. The ventricles are normal in caliber. An extra-axial fluid collection is not noted.Fluid within the visualized sinuses and mastoids is not seen A cervical fracture is not visualized. No dislocation is noted. Spondylosis involves the spine IMPRESSION: No acute intracranial abnormality is seen. CXR: COMPARISON: 2017 FINDINGS: The lungs appear clear of acute infiltrate. The heart is normal size IMPRESSION: No acute abnormalities displayed Venous doppler: FINDINGS: Normal compressibility, flow augmentation, phasic flow and spontaneous flow are identified in the left and right lower extremity common femoral, superficial femoral, popliteal and posterior tibial veins. No intraluminal filling defects seen. IMPRESSION: No DVT in either lower extremity. ECHO: Medical Problem List: Syncope secondary to hypoglycemia with history of diabetes mellitus type 2 with insulin pump Elevated troponin likely related to above complicated with history of CAD Hypertension Hyperlipidemia Brief History of Present Illness: 65-year-old male with history of diabetes mellitus type 2, hyperlipidemia, hypertension, CAD with previous stent presents emergency department after syncopal episode. Patient was out working in the y[place] and noticed that his CGM was alarming for hypoglycemia, patient went into the house and was trying to find something to eat when he evidently passed out, patient's family had not heard from him and eventually went to check, is possible that he was unconscious for between 1 and 2 hr. Upon EMS arrival patient's blood sugar was in the 20s. Patient was given dextrose in transport to the hospital for evaluation in the emergency department. Chest x-ray, CT head C-spine negative for any acute findings. Lab significant for white blood cell count 12.6 potassium 3.4 glucose 106 troponin 0.11 BNP 306. EKG showed no significant abnormality. Patient was admitted for further evaluation and treatment. Hospital Course: Patient presented after syncopal episode secondary to hypoglycemia. Patient with history of diabetes mellitus with insulin pump. During the course of his evaluation troponin was slightly elevated. Patient was seen and evaluated by cardiology who knows the patient very well. Patient with history of CAD and prior stent, hypertension and hyperlipidemia. No significant EKG changes noted. Cardiology does not plan on heart catheterization. Echocardiogram performed showed no evidence of dysfunction. Cardiology plans to have the patient follow- up as an outpatient for cardiac stress test to further evaluate. No intervention required at this time. As mentioned above patient with hypoglycemia. Patient with insulin pump and diabetes. The importance of eating at least 3 meals a day and snacks to maintain blood sugar was enforced. Patient may continue with insulin pump. Patient to continue with insulin pump as directed by his PCP. Further adjustment may be required. Patient with hypertension, hyperlipidemia. At discharge patient will continue with his current medications including aspirin 81 mg daily, Plavix 25 mg daily, Avapro 300 mg daily, fish oil 1000 mg daily, and Lipitor 20 mg daily. Vital Signs/Physical Exam: Temp Pulse Resp BP Pulse Ox 98.2 F 67 18 133/67 100 02/03/21 12:00 02/03/21 12:00 02/03/21 12:00 02/03/21 12:00 02/03/21 12:00 General: Alert, In no apparent distress, Oriented x3, Cooperative HEENT: Atraumatic Neck: Supple Respiratory: Clear to auscultation bilaterally, Normal air movement Cardiovascular: Normal pulses, Regular rate/rhythm Gastrointestinal: Normal bowel sounds, Soft and benign, Non-distended, No tenderness, No masses, No rebound, No guarding Integumentary: No tenderness/swelling Neurological: Normal speech, Normal strength at 5/5 x4 extr, Normal tone, Normal affect Laboratory Data at Discharge: WBC 10.10 K/uL (4.3-10.9) D 02/03/21 03:25 Hgb 14.0 g/dL (13.6-17.9) 02/03/21 03:25 Hct 40.2 % (39.6-49.0) D 02/03/21 03:25 Plt Count 188 K/uL (152-406) 02/03/21 03:25 PT 12.8 SECONDS (9.5-12.5) H 02/02/21 17:48 INR 1.11 02/02/21 17:48 Sodium 142 mmol/L (136-145) 02/03/21 03:25 Potassium 3.6 mmol/L (3.5-5.1) 02/03/21 03:25 BUN 24 mg/dL (7-18) H 02/03/21 03:25 Creatinine 1.25 mg/dL (0.55-1.3) 02/03/21 03:25 Glucose 231 mg/dL (74-106) H 02/03/21 03:25 Magnesium 1.9 mg/dL (1.8-2.4) 02/03/21 03:25 Total Bilirubin 0.9 mg/dL (0.2-1.0) 02/03/21 03:25 AST 40 U/L (15-37) H 02/03/21 03:25 ALT 29 U/L (12-78) 02/03/21 03:25 Alkaline Phosphatase 76 U/L (45-117) 02/03/21 03:25 Troponin I 1.27 ng/mL (0.0-0.045) H* 02/03/21 03:25 Triglycerides 82 mg/dL (<150) 02/03/21 03:25 Cholesterol 124 mg/dL (<200) 02/03/21 03:25 HDL Cholesterol 59 mg/dL (40-60) 02/03/21 03:25 Cholesterol/HDL Ratio 2.10 02/03/21 03:25 Home Medications: Aspirin 81 mg PO DAILY 07/30/14 Atorvastatin Calcium [Lipitor*] 20 mg PO BEDTIME 07/30/14 Clopidogrel Bisulfate [Clopidogrel] 75 mg PO DAILY 07/30/14 Irbesartan [Avapro] 300 mg PO BEDTIME 07/30/14 [place]-3S/Dha/Epa/Fish Oil [Fish Oil 1,200 mg Softgel] 1,200 mg PO DAILY 07/30/14 Physician Discharge Instructions: Patient presented after syncopal episode secondary to hypoglycemia. Patient with history of diabetes mellitus with insulin pump. During the course of his evaluation troponin was slightly elevated. Patient was seen and evaluated by cardiology who knows the patient very well. Patient with history of CAD and prior stent, hypertension and hyperlipidemia. No significant EKG changes noted. Cardiology does not plan on heart catheterization. Echocardiogram performed showed no evidence of dysfunction. Cardiology plans to have the patient follow- up as an outpatient for cardiac stress test to further evaluate. No intervention required at this time. As mentioned above patient with hypoglycemia. Patient with insulin pump and diabetes. The importance of eating at least 3 meals a day and snacks to [place] in blood sugar was enforced. Patient may continue with insulin pump. Patient to continue with insulin pump as directed by his PCP. Further adjustment may be required. Patient with hypertension, hyperlipidemia. At discharge patient will continue with his current medications including aspirin 81 mg daily, Plavix 25 mg daily, Avapro 300 mg daily, fish oil 1000 mg daily, and Lipitor 20 mg daily. Diet: ADA Activity: Ad audrey Followup: NONE,NONE [Primary Care Provider] - Time spent managing pt's care (in minutes): 55
[2021-02-03 16:20] VITALS: BP 156/63; TEMP 98.5
[2021-02-03] MEDS ORDERED: IRBESARTAN 150 MG TAB PO SCH (21:00)
--- NOTE | 2021-02-04 08:03 | ECHO ---
HEIGHT: 6 ft 1 in WEIGHT: 206 lb 0 oz DATE OF STUDY: 02/03/[address]: Juan Pablo Donohue MD 2-DIMENSIONAL: YES M.MODE: YES DOPPLER: YES COLOR FLOW: YES TDS: YES PORTABLE: NO DEFINITY: NO BUBBLE STUDY: NO DIAGNOSIS: SYNCOPE, NSTEMI CARDIAC HISTORY: CATHERIZATION: YES SURGERY: NO PROSTHETIC VALVE: NO PACEMAKER: NO MEASUREMENTS (cm) DIASTOLIC (NORMALS) SYSTOLIC (NORMALS) IVSd 1.0 (0.6-1.2) LA Diam 3.2 (1.9-4.0) LVEF 60% LVIDd 4.1 (3.5-5.7) LVIDs 2.8 (2.0-3.5) %FS 31% LVPWd 1.1 (0.6-1.2) Ao Diam 2.2 (2.0-3.7) 2 DIMENSIONAL ASSESSMENT: RIGHT ATRIUM: NORMAL LEFT ATRIUM: NORMAL RIGHT VENTRICLE: NORMAL LEFT VENTRICLE: NORMAL TRICUSPID VALVE: NORMAL MITRAL VALVE: NORMAL PULMONIC VALVE: NORMAL AORTIC VALVE: NORMAL PERICARDIAL EFFUSION: NONE AORTIC ROOT: NORMAL LEFT VENTRICULAR WALL MOTION: NORMAL DOPPLER/COLOR FLOW: NORMAL COMMENTS: NORMAL 2D ECHOCARDIOGRAM WITH DOPPLER. NO WALL MOTION ABNORMALITY. NO EFFUSION. TECHNOLOGIST: Toñito SMITH
== END 2021-02-03 16:49 | disposition home or self-care (01) | DRG 637 ==
LOC: ER 16:43 → ERHOLD 19:59 → 4TH 21:50
PROVIDERS: ADMIT Family Medicine; ATTEND Family Medicine
DX: E11.649 Type 2 diabetes mellitus with hypoglycemia without coma (principal); I21.4 Non-ST elevation (NSTEMI) myocardial infarction; E78.5 Hyperlipidemia, unspecified; I10 Essential (primary) hypertension; I25.10 Atherosclerotic heart disease of native coronary artery without angina pectoris; I25.2 Old myocardial infarction; R60.9 Edema, unspecified; Z95.5 Presence of coronary angioplasty implant and graft; Z79.82 Long term (current) use of aspirin; Z79.4 Long term (current) use of insulin; Z96.41 Presence of insulin pump (external) (internal); Z79.02 Long term (current) use of antithrombotics/antiplatelets; Z79.899 Other long term (current) drug therapy; Z20.822 Contact with and (suspected) exposure to COVID-19
CPT/HCPCS: 36415; 70450; 71045; 72125; 80048; 80053; 80061; 80076; 81003; 82550; 82947; 83735; 83880; 84439; 84443; 84484; 85025; 85610; 93005; 93306; 93970; 96372; 96374; 96375; 99285; G0390; J1650; J1940; U0003

== ENCOUNTER 2022-09-20 09:38 | Emergency (ER) | payer OTHER ==
--- OUTSIDE RECORDS SUMMARY | 2022-09-20 09:43 | XMS REPORT | Continuity of Care Document ---
:1955 Author Organization [facility] [place] t Address [address] [place] [address] Care Team Providers Name Role Phone HECTOR EARL Primary Care Physician Unavailable Tavares Kennedy Attending Clinician Unavailable Aiyana Goldberg MD Attending Clinician AIYANA GOLDBERG Attending Clinician Unavailable Doctor Unassigned, [place] Attending Clinician Unavailable Yulia Yan RN Attending Clinician REUBEN LYNN Attending Clinician Unavailable REUBEN LYNN Admitting Clinician Unavailable Payers Payer Name Policy Type Policy Number Effective Date Expiration Date Neftali valadez [facility] 53 [id number] 2021 Common Sp elijah ring MCR 00:00:00 - [place] Problems Condition Condition Condition Status Onset Resolution Last Treating Co mments Source Name Details Category Date Date Treatment Clinician Date Cellulitis Cellulitis Disease Active U nivers 5-06 ity of 00:00: [place] 00 Medical Branch Acute on Acute on Disease Active Unive rs chronic chronic 5-05 [place] of diastolic [place] 00 Medical (congestiv (congestiv Br anch e heart e heart failure), failure), NYHA class NYHA class 3 3 Dyslipidem Dyslipidem Disease Active U nivers ia ia 5-05 ity of 00:00: [place] 00 Medical Branch Cellulitis Cellulitis Disease Active U nivers of left of left 5-04 ity of lower lower 00:00: [place] extremity extremity 00 Medi jessica Branch [id number] [place] [address] osteoarthr Spirit itis of - CHI left hand [facility] [id number] Nontraumat Problem Active Co mmon ic Spirit incomplete - CHI tear of right [facility] rotator Medical cuff Center [id number] 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 - [facility], [id number] Stented Problem Active Commo n coronary Spirit artery - CHI [facility] [id number] Essential Problem Active Comm on (primary) Spirit hypertensi - CHI on [facility] [id number] Coronary Problem Active 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 [id number] Mixed Problem Active Common hyperlipid Spirit emia - CHI [facility] Coronary CAD Problem Active Common artery (coronary Spirit disease artery - CHI disease) [facility] Congestive CHF Problem Active Commo n heart (congestiv Spirit failure e heart - CHI failure) [facility] [id number] Body mass Problem Active Com mon index Spirit [BMI] - CHI 34.0-34.9, [facility] [id number] Other Problem Active Common obesity Spirit due to - CHI excess [facility] Allergies, Adverse Reactions, Alerts Allergy Allergy Status Severity Reaction(s) Onset Inactive Treating Comm ents Source Name Type Date Date Clinician No Known DA Active U [facility] Allergie 4-18 Clear s 00:00: [place] 00 [facility] No Known DA Active U 0 [facility] Drug 8-30 Clear Intolera 00:00: Clemons nces 00 [facility] No Known DA Active U 2003- [facility] Contrast 8-30 Clear Allergie 00:00: Clemons s 00 [facility] No Known DA Active U 2003-0 [facility] Drug 8-30 Clear Allergie 00:00: Clemons s [facility] No Known DA Active U 2003- [facility] Food 8-30 Clear Allergie 00:00: Clemons s [facility] No Known DA Active U 2003- [facility] Other 8-30 Clear Allergie 00:00: Clemons s [facility] NO KNOWN Drug Active Univers ALLERGIE Class ity of S [facility] Social History Social Habit Start Date Stop Date Quantity Comments Source Exposure to Not sure University of SARS-CoV-2 [facility] (event) Branch History of Common Spirit - Tobacco Use [facility] Sex Assigned At Common Sp elijah - [facility] Tobacco use and 2021-03-02 2021-03-02 Former user Universi ty of exposure 00:00:00 00:00:00 [facility] Alcohol intake 2021-03-02 2021-03-02 Ex-drinker [facility] 00:00:00 00:00:00 (finding) [facility] History SDOH 2021-02-10 2021-02-10 21 University o f Education 00:00:00 00:00:00 [facility] Smoking Status Start Date Stop Date Source Former Smoker 2022-06-25 00:00:00 2022-06-25 00:00:00 [facility] pirit - [facility] Medications Ordered Filled Start Stop Current Ordering Indication Dosage Frequency Signature Comments Components Source Medication Medication Date Date Medication? Clinician (SIG) Name Name spironolact 2020- No [id number] 25mg Take 1 Univers one 25 mg 5-08 06-08 tablet by ity of tablet 00:00: 04:59 mouth [place] 00 :00 daily for Medical 30 days. Branch spironolact 2020- No [id number] 25mg Take 1 Univers one 25 mg 5-08 06-08 tablet by ity of tablet 00:00: 04:59 mouth [place] 00 :00 daily for Medical 30 days. Branch spironolact 2020- No [id number] 25mg Take 1 Univers one 25 mg 5-08 06-08 tablet by ity of tablet 00:00: 04:59 mouth [place] 00 :00 daily for Medical 30 days. Branch spironolact 2020- No [id number] 25mg Take 1 Univers one 25 mg 5-08 06-08 tablet by ity of tablet 00:00: 04:59 mouth [place] 00 :00 daily for Medical 30 days. [place] clopidogreL 2020-0 Yes 75mg Take 75 mg Univers (PLAVIX) 75 5-07 by mouth ity of mg tablet 19:27: daily. [address] aspirin 81 0 Yes 81mg Take 81 mg U nivers mg EC 5-07 by mouth ity of tablet 19:27: daily. [address] clopidogreL 0 Yes 75mg Take 75 mg Univers (PLAVIX) 75 5-07 by mouth ity of mg tablet 19:27: daily. [address] aspirin 81 0 Yes 81mg Take 81 mg U nivers mg EC 5-07 by mouth ity of tablet 19:27: daily. [address] clopidogreL 0 Yes 75mg Take 75 mg Univers (PLAVIX) 75 5-07 by mouth ity of mg tablet 19:27: daily. [address] aspirin 81 0 Yes 81mg Take 81 mg U nivers mg EC 5-07 by mouth ity of tablet 19:27: daily. [address] clopidogreL 0 Yes 75mg Take 75 mg Univers (PLAVIX) 75 5-07 by mouth ity of mg tablet 19:27: daily. [address] aspirin 81 0 Yes 81mg Take 81 mg U nivers mg EC 5-07 by mouth ity of tablet 19:27: daily. [address] furosemide 2020-0 2020- No [id number] 40mg Take 1 Univers 40 mg 5-07 06-07 tablet by ity of tablet 00:00: 04:59 mouth [place] 00 :00 daily for Medical 30 days. [place] furosemide 2020-0 2020- No [id number] 40mg Take 1 Univers 40 mg 5-07 06-07 tablet by ity of tablet 00:00: 04:59 mouth [place] 00 :00 daily for Medical 30 days. [place] furosemide 2020-0 2020- No [id number] 40mg Take 1 Univers 40 mg 5-07 06-07 tablet by ity of tablet 00:00: 04:59 mouth [place] 00 :00 daily for Medical 30 days. [place] furosemide 2020-0 2020- No [id number] 40mg Take 1 Univers 40 mg 5-07 06-07 tablet by ity of tablet 00:00: 04:59 mouth [place] 00 :00 daily for Medical 30 days. Branch clindamycin 1- No [id number] 300mg Take 1 Univers 300 mg 02-13 [id number] capsule by ity of capsule 00:00: 04:59 mouth 4 [place] 00 :00 (four) Medical times Branch daily for 7 days. carvediloL 2020- Yes 25mg Take 25 mg U nivers 25 mg 3-20 by mouth 2 ity of tablet 00:00: (two) [place] 00 times Medical daily. Branch carvediloL 2020-0 Yes 25mg Take 25 mg U nivers 25 mg 3-20 by mouth 2 ity of tablet 00:00: (two) [place] 00 times Medical daily. Branch carvediloL 2020-0 Yes 25mg Take 25 mg U nivers 25 mg 3-20 by mouth 2 ity of tablet 00:00: (two) [place] 00 times Medical daily. Branch carvediloL 2020-0 Yes 25mg Take 25 mg U nivers 25 mg 3-20 by mouth 2 ity of tablet 00:00: (two) [place] 00 times Medical daily. Branch GLUCAGEN Yes USE ONE Univer s HYPOKIT 1 3-15 (1) KIT ity of mg 00:00: DIRECTED [place] injection 00 NEEDED. Medi jessica MAY REPEAT Branch IN 15 MINS IF NEEDED. GLUCAGEN Yes USE ONE Univer s HYPOKIT 1 3-15 (1) KIT ity of mg 00:00: DIRECTED [place] injection 00 NEEDED. Medi jessica MAY REPEAT Branch IN 15 MINS IF NEEDED. GLUCAGEN Yes USE ONE Univer s HYPOKIT 1 3-15 (1) KIT ity of mg 00:00: DIRECTED [place] injection 00 NEEDED. Medi jessica MAY REPEAT Branch IN 15 MINS IF NEEDED. GLUCAGEN Yes USE ONE Univer s HYPOKIT 1 3-15 (1) KIT ity of mg 00:00: DIRECTED [place] injection 00 NEEDED. Medi jessica MAY REPEAT Branch IN 15 MINS IF NEEDED. irbesartan 2020- Yes 300mg Take 300 Un unique 300 mg 3-13 mg by ity of tablet 00:00: mouth [place] 00 daily. Medical Branch irbesartan 2021-0 Yes 300mg Take 300 Un unique 300 mg 3-13 mg by ity of tablet 00:00: mouth [place] 00 daily. Medical Branch irbesartan 2021-0 Yes 300mg Take 300 Un unique 300 mg 3-13 mg by ity of tablet 00:00: mouth [place] 00 daily. Medical Branch irbesartan 2021-0 Yes 300mg Take 300 Un unique 300 mg 3-13 mg by ity of tablet 00:00: mouth [place] 00 daily. Medical Branch HUMALOG 1-0 Yes USE 70 Univers U-100 3-11 UNITS VIA ity of INSULIN 100 00:00: INSULIN [place] as unit/mL 00 PUMP ONCE Medical solution A DAY. Branch HUMALOG 2020-0 Yes USE 70 Univers U-100 3-11 UNITS VIA ity of INSULIN 100 00:00: INSULIN [place] unit/mL 00 PUMP ONCE Medical solution A DAY. Branch HUMALOG 2020-0 Yes USE 70 Univers U-100 3-11 UNITS VIA ity of INSULIN 100 00:00: INSULIN [place] unit/mL 00 PUMP ONCE Medical solution A DAY. Branch HUMALOG 2020-0 Yes USE 70 Univers U-100 3-11 UNITS VIA ity of INSULIN 100 00:00: INSULIN [place] as unit/mL 00 PUMP ONCE Medical solution A DAY. Branch Bupivicaine Bupivicaine 2020-0 No 4mL Common [place] Argyle 6- Spirit 00:00: - CHI 00 [facility] Kenalog Kenalog 2020-0 No 40mg Common (Triamcinol (Triamcinol 6-09 S pirit one) one) 00:00: - CHI 00 [facility] Bupivicaine Bupivicaine 2020-0 No 4mL Common Arg[place] Argyle 6-09 Spirit 00:00: - CHI 00 [facility] Kenalog Kenalog 2020-0 No 40mg Common (Triamcinol (Triamcinol 6-09 S pirit one) one) 00:00: - CHI 00 [facility] Bupivicaine Bupivicaine 2020-0 No 4mL Common [place] Argyle 6-09 Spirit 00:00: - CHI 00 [facility] Kenalog Kenalog 2020-0 No 40mg Common (Triamcinol (Triamcinol 6-09 S pirit one) one) 00:00: - CHI 00 [facility] Bupivicaine Bupivicaine 2020-0 No 4mL Common Argyle Argyle - Spirit 00:00: - CHI 00 [facility] Kenalog Kenalog 2020-0 No 40mg Common (Triamcinol (Triamcinol 03-18 S pirit one) one) 00:00: - CHI 00 [facility] Contour Contour No Contour Next Test Next Test Next Test Carvedilol Carvedilol No 1{table BID Carvedilol 25 MG 25 MG t_with_ 25 MG food} Irbesartan Irbesartan No 1{table QD Irbesartan 300 MG 300 MG t} 300 MG Acetaminoph Acetaminoph No 1{capsu QID Acetaminop en 500 MG en 500 MG le_as_n hen 500 MG eeded} Clopidogrel Clopidogrel No 1{table QD Clopidogre Bisulfate Bisulfate t} l 75 MG 75 MG Bisulfate 75 MG Furosemide Furosemide No 1{table QD Furosemide 40 MG 40 MG t} 40 MG HumaLOG 100 HumaLOG 100 No HumaLOG UNIT/ML UNIT/ML 100 UNIT/ML Atorvastati Atorvastati No 1{table QD Atorvastat n Calcium n Calcium t} in Calcium 20 MG 20 MG 20 MG Glucagon Glucagon No Glucagon Emergency 1 Emergency 1 Emergency MG MG 1 MG Furosemide Furosemide No Furosemide 40 MG 40 MG 40 MG Clopidogrel Clopidogrel No 1{table QD Clopidogre Bisulfate Bisulfate t} l 75 MG 75 MG Bisulfate 75 MG Irbesartan Irbesartan No 1{table QD Irbesartan 300 MG 300 MG t} 300 MG Aspirin Aspirin No Aspirin Adult Low Adult Low Adult Low Dose Dose Dose Acetaminoph Acetaminoph No 1{capsu QID Acetaminop en 500 MG en 500 MG le_as_n hen 500 MG eeded} Furosemide Furosemide No Furosemide 40 MG 40 MG 40 MG Contour Contour No Contour Next Test Next Test Next Test Furosemide Furosemide No 1{table QD Furosemide 40 MG 40 MG t} 40 MG Carvedilol Carvedilol No 1{table BID Carvedilol 25 MG 25 MG t_with_ 25 MG food} Atorvastati Atorvastati No 1{table QD Atorvastat n Calcium n Calcium t} in Calcium 20 MG 20 MG 20 MG HumaLOG 100 HumaLOG 100 No HumaLOG UNIT/ML UNIT/ML 100 UNIT/ML Glucagon Glucagon No Glucagon Emergency 1 Emergency 1 Emergency MG MG 1 MG Glucagon Glucagon No Glucagon Emergency 1 Emergency 1 Emergency MG MG 1 MG Irbesartan Irbesartan No 1{table QD Irbesartan 300 MG 300 MG t} 300 MG Contour Contour No Contour Next Test Next Test Next Test Clopidogrel Clopidogrel No 1{table QD Clopidogre Bisulfate Bisulfate t} l 75 MG 75 MG Bisulfate 75 MG Carvedilol Carvedilol No 1{table BID Carvedilol 25 MG 25 MG t_with_ 25 MG food} HumaLOG 100 HumaLOG 100 No HumaLOG UNIT/ML UNIT/ML 100 UNIT/ML Atorvastati Atorvastati No 1{table QD Atorvastat n Calcium n Calcium t} in Calcium 20 MG 20 MG 20 MG Acetaminoph Acetaminoph No 1{capsu QID Acetaminop en 500 MG en 500 MG le_as_n hen 500 MG eeded} Furosemide Furosemide No 1{table QD Furosemide 40 MG 40 MG t} 40 MG Glucagon Glucagon No Glucagon Emergency 1 Emergency 1 Emergency MG MG 1 MG Irbesartan Irbesartan No 1{table QD Irbesartan 300 MG 300 MG t} 300 MG Contour Contour No Contour Next Test Next Test Next Test Clopidogrel Clopidogrel No 1{table QD Clopidogre Bisulfate Bisulfate t} l 75 MG 75 MG Bisulfate 75 MG Carvedilol Carvedilol No 1{table BID Carvedilol 25 MG 25 MG t_with_ 25 MG food} HumaLOG 100 HumaLOG 100 No HumaLOG UNIT/ML UNIT/ML 100 UNIT/ML Atorvastati Atorvastati No 1{table QD Atorvastat n Calcium n Calcium t} in Calcium 20 MG 20 MG 20 MG Acetaminoph Acetaminoph No 1{capsu QID Acetaminop en 500 MG en 500 MG le_as_n hen 500 MG eeded} Furosemide Furosemide No 1{table QD Furosemide 40 MG 40 MG t} 40 MG Acetaminoph Acetaminoph No 1{capsu QID Acetaminop en 500 MG en 500 MG le_as_n hen 500 MG eeded} Contour Contour No Contour Next Test Next Test Next Test HumaLOG 100 HumaLOG 100 No HumaLOG UNIT/ML UNIT/ML 100 UNIT/ML Carvedilol Carvedilol No 1{table BID Carvedilol 25 MG 25 MG t_with_ 25 MG food} Irbesartan Irbesartan No 1{table QD Irbesartan 300 MG 300 MG t} 300 MG Atorvastati Atorvastati No 1{table QD Atorvastat n Calcium n Calcium t} in Calcium 20 MG 20 MG 20 MG Glucagon Glucagon No Glucagon Emergency 1 Emergency 1 Emergency MG MG 1 MG Clopidogrel Clopidogrel No 1{table QD Clopidogre Bisulfate Bisulfate t} l 75 MG 75 MG Bisulfate 75 MG Furosemide Furosemide No 1{table QD Furosemide 40 MG 40 MG t} 40 MG Aspirin Aspirin 2021- No 1{table QD Aspirin Adult Low Adult Low 01-26 t} Adult Low Dose 81 MG Dose 81 MG 00:00 Dose 81 MG :00 Fish Oil Fish Oil 2021- No 1{capsu QD Fish Oil 1000 MG 1000 MG 01-26 le} 1000 MG 00:00 :00 Aspirin Aspirin 2021- No 1{table QD Aspirin Adult Low Adult Low 01-26 t} Adult Low Dose 81 MG Dose 81 MG 00:00 Dose 81 MG :00 Fish Oil Fish Oil 2021- No 1{capsu QD Fish Oil 1000 MG 1000 MG 01-26 le} 1000 MG 00:00 :00 Immunizations Ordered Filled Immunization Date Status Comments [facility] e Immunization Name Name FluAD FluAD 2021-09-08 Completed [facility] - 09:21:00 [facility] FluAD FluAD 2021-09-08 Completed [facility] - 09:21:00 [facility] FluAD FluAD 2021-09-08 Completed [facility] - 09:21:00 [facility] FluAD FluAD 2021-09-08 Completed [facility] - 09:21:00 [facility] FluAD FluAD 2021-09-08 Completed [facility] - 09:21:00 [facility] SARS-COV-2 COVID-19 2021-01-02 Completed Unive rsity of PFIZER VACCINE 00:00:00 [place] [facility] SARS-COV-2 COVID-19 2021-01-02 Completed Unive rsity of PFIZER VACCINE 00:00:00 [facility] SARS-COV-2 COVID-19 2021-01-02 Completed Unive rsity of PFIZER VACCINE 00:00:00 [facility] SARS-COV-2 COVID-19 2021-01-02 Completed Unive rsity of PFIZER VACCINE 00:00:00 [facility] SARS-COV-2 COVID-19 2020-12-12 Completed Unive rsity of PFIZER VACCINE 00:00:00 [place] [facility] SARS-COV-2 COVID-19 2020-12-12 Completed Unive rsity of PFIZER VACCINE 00:00:00 [facility] SARS-COV-2 COVID-19 2020-12-12 Completed Unive rsity of PFIZER VACCINE 00:00:00 [facility] SARS-COV-2 COVID-19 2020-12-12 Completed Unive rsity of PFIZER VACCINE 00:00:00 [facility] Tetanus Toxoid (TT) Tetanus Toxoid (TT) 2014-10-09 Completed [facility] - 09:21:00 [facility] Tetanus Toxoid (TT) Tetanus Toxoid (TT) 2014-10-09 Completed [facility] - 09:21:00 [facility] Tetanus Toxoid (TT) Tetanus Toxoid (TT) 2014-10-09 Completed [facility] - 09:21:00 [facility] Tetanus Toxoid (TT) Tetanus Toxoid (TT) 2014-10-09 Completed [facility] - 09:21:00 [facility] Tetanus Toxoid (TT) Tetanus Toxoid (TT) 2014-10-09 Completed [facility] - 09:21:00 [facility] Vital Signs Vital Name Observation Time Observation Value Comments Source height 2022-06-24 08:30:00 72.5 [in_i] [facility] weight 2022-06-24 08:30:00 255 [lb_av] [facility] temperature 2022-06-24 08:30:00 96.5 [degF] [facility] bmi 2022-06-24 08:30:00 34.11 kg/m2 [facility] blood pressure 2022-06-24 08:30:00 134 mm[Hg] [facility] systolic [facility] blood pressure 2022-06-24 08:30:00 78 mm[Hg] Common [facility] - diastolic [facility] height 2022-06-03 10:10:00 72.5 [in_i] [facility] weight 2022-06-03 10:10:00 254.3 [lb_av] Common [facility] temperature 2022-06-03 10:10:00 97.7 [degF] Common S pirit [facility] bmi 2022-06-03 10:10:00 34.01 kg/m2 Common S pirit [facility] oximetry 2022-06-03 10:10:00 94 % Common S pirit [facility] respiratory rate 2022-06-03 10:10:00 16 /min Comm on [facility] blood pressure 2022-06-03 10:10:00 129 mm[Hg] Common [facility] - systolic [facility] blood pressure 2022-06-03 10:10:00 60 mm[Hg] [facility] - diastolic [facility] weight 2022-02-01 13:00:00 259.6 [lb_av] [facility] temperature 2022-02-01 13:00:00 97.9 [degF] Common S pirit [facility] bmi 2022-02-01 13:00:00 34.72 kg/m2 Common S pirit [facility] oximetry 2022-02-01 13:00:00 97 % Common [facility] respiratory rate 2022-02-01 13:00:00 16 /min Comm on [facility] blood pressure 2022-02-01 13:00:00 125 mm[Hg] [facility] - systolic [facility] blood pressure 2022-02-01 13:00:00 59 mm[Hg] [facility] - diastolic [facility] height 2022-02-01 13:00:00 72.5 [in_i] Common S pirit [facility] height 2021-10-28 09:00:00 72.5 [in_i] Common S pirit [facility] weight 2021-10-28 09:00:00 258.8 [lb_av] Common [facility] temperature 2021-10-28 09:00:00 97.9 [degF] Common S pirit - [facility] bmi 2021-10-28 09:00:00 34.61 kg/m2 Common S [facility] oximetry 2021-10-28 09:00:00 97 % Common S [facility] respiratory rate 2021-10-28 09:00:00 16 /min Comm on [facility] blood pressure 2021-10-28 09:00:00 134 mm[Hg] Common [facility] - systolic [facility] blood pressure 2021-10-28 09:00:00 62 mm[Hg] Common [facility] - diastolic [facility] Systolic blood 2021-03-02 15:27:00 137 mm[Hg] Univer sity [facility] Diastolic blood 2021-03-02 15:27:00 68 mm[Hg] [facility] Heart rate 2021-03-02 15:27:00 56 /min [facility] Body temperature 2021-03-02 15:27:00 35.89 [facility] 2021-03-02 15:27:00 113.218 kg [facility] BMI 2021-03-02 15:27:00 33.85 kg/m2 [facility] Oxygen saturation in 2021-03-02 15:27:00 99 /min [facility] blood by [facility] Pulse oximetry Branch Procedures Procedure Date / Time Performed Performing Clinician [facility] e ASSIGNMENT OF BENEFITS 2021-03-02 15:17:15 Doctor Unassigned, No [facility] Encounters Start End Encounter Admission Attending Care Care Encounter Source Date/Time Date/Time Type Type Clinicians Facility Department ID 2022-08-30 Outpatient Kennedy, STLMLC STLC [id number] Common 14:36:02 Tavares [facility] 2022-06-24 Outpatient Kennedy, STLMLC STLC [id number] Common 08:37:02 Tavares [facility] 2022-02-25 Outpatient Kennedy, STLMLC STLC [id number] Common 09:36:01 Tavares [facility] 2021-11-04 Outpatient Kennedy, STLMLC STLMLC [id number] Common 14:37:19 Tavares [facility] 2022-06-24 2022-06-24 OFFICE STLMLC STLMLC [id number] Co mmon 00:00:00 00:00:00 VISIT Spirit ESTAB PT - CHI LEVEL 4 [facility] 2022-06-03 2022-06-03 OFFICE STLMLC STLMLC [id number] Co mmon 00:00:00 00:00:00 VISIT Spirit ESTAB PT - CHI LEVEL [address] [place] [address] 2022-02-01 2022-02-01 OFFICE STLMLC STLMLC [id number] Co mmon 00:00:00 00:00:00 VISIT Spirit ESTAB PT - CHI LEVEL [address] [place] [address] 2021-12-30 2021-12-30 (TEL) STLMLC STLMLC [id number] Co mmon 00:00:00 00:00:00 [facility] 2021-10-28 2021-10-28 OFFICE STLMLC STLMLC [id number] Co mmon 00:00:00 00:00:00 VISIT NEW Spir it PT LEVEL 4 [facility] 2021-03-02 2021-03-02 Office Yusuf [facility] [id number] Univers 10:19:49 10:47:52 Visit Aiyana Vu [id number] i ty [facility] [id number] Diana Espinozaesskip [phone] [place] [address] Branch [facility] 2021-03-02 2021-03-02 Outpatient R YUSUF [facility] [id number] Univers 10:15:00 10:15:00 AIYANA price of [facility] 2021-03-02 2021-03-02 Orders Doctor MCCLENDON [id number] Univers 00:00:00 00:00:00 Only Unassigned, GISELE [id number] ity of [place] [facility] [id number] Gabriel as [phone] [address] 2021-02-16 2021-02-16 [facility] [id number] Univers 00:00:00 00:00:00 of Care Yulia Perez [id number] it y of [place] [id number] Diana [place] [phone] [place] [address] Branch 2021-02-10 2021-02-13 Inpatient X SHANE [facility] [id number] Univers 16:08:00 14:25:00 REUBEN price [facility] Results Test Description Test Time Test Comments Results Result Comments Source GLUBED 2019-01-31 08:03:00 Test Item Value Reference Range Interpretation Comme nts GLUBED (test code = GLUBED) 172 MG/DL 70-110 H Performed by certified offset press operator helper at [facility] [id number] 06:42:00 Test Item Value Reference Range Interpretation Comments GLUBED (test code = 155 MG/DL 70-110 H Performe d by certified GLUBED) offset press operator helper at [facility] BASIC METABOLIC [id number] 13:04:00 Test Item Value Reference Range Interpretation [...] 8.7 mg/dL 8.0-10.5 N [place]) CBC W/AUTO [id number] 13:01:00 Test Item Value Reference Range Interpretation [...] MANUAL DIFF REQUIRED (test code NO = GABBY) - XR CHEST 2 [id number] 12:26:00 FAX: Hector Barnett Jr [phone] [place]: St: PRE FAX: Pedrito Hill Jr [phone] Name: SUAD MOTA [facility] [place] : 1955 Age/S: 63/M [address] [place] [address] Unit #: [id number] Loc: [place] [address] Phys: Pedrito Odonnell Jr, MD Acct: [id number] Dis Date: Status: PRE SDC PHONE #: [phone] Exam Date: 01/26/2019 1226 FAX #: [phone] Reason: LT WRIST DE QUERVAIN RELEASE EXAMS:CPT CODE: [id number] XR CHEST 2 V [id number] Patient Name: SUAD MOTA : 1955; Age: 63 years y/o Male MR: [id number] Study: - XR CHEST 2 V 01/26/2019 11:34 AM Ordering Physician: Pedrito Odonnell Jr, MD Comparison: None Clinical Indication: Preoperative clearance; LT WRIST DE QUERVAIN RELEASE Lungsare clear. Cardiomediastinal silhouette normal. No consolidation or pleural fluid collection is noted. Bony thorax grossly intact. No pulmonary venous vascular congestion. IMPRESSION: No acute cardiopulmonary process. SL: [id number] at 1226 Reported and signed by: Anand Hager M.D. CC: Hector Earl Jr, MD; Pedrito Odonnell Jr, MD Technologist: Teetee Zepeda, RT(R), RTT Trnscrd Date/Time/By: 01/26/2019 (1338) : By: [email or web address] Orig Print D/T: S: 01/26/2019 (1168) PAGE 1 Signed Report
--- NOTE | 2022-09-20 10:54 | RAD REPORT ---
EXAM DESCRIPTION: CT - Head Brain Wo Cont - 09/20/2022 10:30 am CLINICAL HISTORY: Head injury status post fall COMPARISON: 2011 TECHNIQUE: Computed axial tomography of the head was obtained. IV contrast was not requested. All CT scans are performed using dose optimization technique as appropriate and may include automated exposure control or mA/KV adjustment according to patient size. FINDINGS: An intracranial bleed is not seen . The ventricles are normal in caliber. No extra-axial fluid collection is noted. No significant hypodensity within the brain is seen. Fluid within the sinuses/ mastoids is not seen. IMPRESSION: No acute intracranial abnormality is seen. If patient's symptoms persist MRI of the bra in would be recommended.
--- NOTE | 2022-09-20 11:01 | RAD REPORT ---
EXAM DESCRIPTION: CT - Thorax Wo Con - 09/20/2022 10:30 am CLINICAL HISTORY: Chest pain status post fall COMPARISON: None TECHNIQUE: Computed axial tomography of the chest was obtained. Contrast was not requested. All CT scans are performed using dose optimization technique as appropriate and may include automated exposure control or mA/KV adjustment according to patient size. FINDINGS: The evaluation of mediastinum, eufemia and vessels is limited secondary to lack of IV contras t administration. A mediastinal hematoma is not seen. A pulmonary contusion is not noted A pleural effusion is not present. A pericardial effusion is not seen A few areas subsegmental atelectasis within the lung bases IMPRESSION: A few areas subsegmental atelectasis within the lung bases
--- NOTE | 2022-09-20 11:13 | ER ---
Nurse's Notes [facility] Name: Real Montiel Age: 67 yrs Sex: Male : 1955 Arrival Date: 09/20/2022 Time: 09:39 Bed IW2 Private MD: Diagnosis: Contusion of thorax Presentation: 09/20 09:51 Chief complaint: Patient states: fall, positive loc, rib pain - takes plavix. 5 Coronavirus screen: Vaccine status: Patient reports receiving the 2nd dose of the covid vaccine. Client denies travel out of the [place] in the last 14 days. Ebola Screen: Patient negative for fever greater than or equal to 101.5 degrees Fahrenheit, and additional compatible Ebola Virus Disease symptoms Patient denies exposure to infectious person. Patient denies travel to an Ebola-affected area in the 21 days before illness onset. Initial Sepsis Screen: Does the patient meet any 2 criteria? No. Patient's initial sepsis screen is negative. Does the patient have a suspected source of infection? No. Patient's initial sepsis screen is negative. Risk Assessment: Do you want to hurt yourself or someone else? Patient reports no desire to harm self or others. Onset of symptoms was September 17, 2022. 09:51 Method Of Arrival: Wheelchair [facility] 09:51 Acuity: GEOFF 3 5 Triage Assessment: 09:53 General: Appears in no apparent distress. uncomfortable, Behavior is calm, cooperative, jh5 appropriate for age. Pain: Complains of pain in ribs. Historical: - PMHx: 09:53 Diabetes - IDDM; Diabetes Type 1; Hyperlipidemia; Hypertension; Myocardial infarction; 5 - Immunization history:: Adult Immunizations up to date. - Social history:: Smoking status: Patient denies any tobacco usage or history of. Vital Signs: 09:51 BP 165 / 63; Pulse 69; Resp 16; Temp 97.7; Pulse Ox 96% ; Weight 99.79 kg; Height 6 ft. 5 0 in. (182.88 cm); Pain 6/10; 09:51 Body Mass Index 29.84 (99.79 kg, 182.88 cm) [facility] ED Course: 09:39 Patient arrived in ED. rg4 09:46 Milton Medina PA is PHCP. [facility] 09:46 Geronimo Bone DO is Attending Physician. [facility] 09:47 PHCP role handed off by Milton Medina PA jr8 09:47 Parminder Sabillon PA is PHCP. jr 09:53 Triage completed. [facility] 09:53 Arm band placed on right wrist. jh5 10:31 Thorax Wo Con In Process Unspecified. EDMS 10:31 Head Brain Wo Cont In Process Unspecified. EDMS Administered Medications: No medications were administered Outcome: 11:12 Discharge ordered by . ankit 11:21 Patient left the ED. ld1 Signatures: Dispatcher [employer] EDMS Milton Medina PA PA [facility] Parminder Sabillon PA PA jr8 Sandi Kim rg4 Florecita Nava, RN RN ld1 Orly Mary RN RN jh5
--- NOTE | 2022-09-20 11:13 | EDPHYS ---
Physician Documentation [facility] Name: Real Montiel Age: 67 yrs Sex: Male : 1955 Arrival Date: 09/20/2022 Time: 09:39 Bed IW2 Private MD: ED Physician Geronimo Bone HPI: 09/20 10:38 This 67 yrs old Male presents to ER via Wheelchair with complaints of Fall Injury, Low jr8 Blood Sugar. 10:38 Details of fall: The patient fell from an upright position, while standing. Onset: The jr8 symptoms/episode began/occurred acutely, 2 day(s) ago. Associated injuries: The patient sustained injury to the chest. Severity of symptoms: At their worst the symptoms were moderate, in the emergency department the symptoms are unchanged. The patient has not experienced similar symptoms in the past. The patient has not recently seen a physician. 67-year-old male patient that presented to the emergency room after having hypoglycemic episode 2 days ago at home. Stated that he became altered and passed out. Neighbor found him and helped him up. Managed to get his glucose under control at that time. EMS was called but declined transport at that time. He stated that he was slightly sore in both sides of his ribs but that he continues to have pain and trouble with motion and breathing since the fall injury. Patient admits to hitting his head the other day when he fell but denies any headache, blurred vision, dizziness, nausea, or any other focal deficits.. Historical: - PMHx: 09:53 Diabetes - IDDM; Diabetes Type 1; Hyperlipidemia; Hypertension; Myocardial infarction; jh5 - Immunization history:: Adult Immunizations up to date. - Social history:: Smoking status: Patient denies any tobacco usage or history of. ROS: 10:38 Eyes: Negative for injury, pain, redness, and discharge, ENT: Negative for injury, jr8 pain, and discharge, Neck: Negative for injury, pain, and swelling, Respiratory: Negative for shortness of breath, cough, wheezing, and pleuritic chest pain, Abdomen/GI: Negative for abdominal pain, nausea, vomiting, diarrhea, and constipation, Back: Negative for injury and pain, MS/Extremity: Negative for injury and deformity, Skin: Negative for injury, rash, and discoloration, Neuro: Negative for headache, weakness, numbness, tingling, and seizure. 10:38 Cardiovascular: Positive for chest pain. Exam: 10:38 Constitutional: This is a well developed, well nourished patient who is awake, alert, jr8 and in no acute distress. Head/Face: Normocephalic, patient has scabbing and abrasive lerenr to the left parietal region of his head Eyes: Pupils equal round and reactive to light, extra-ocular motions intact. Lids and lashes normal. Conjunctiva and sclera are non-icteric and not injected. Cornea within normal limits. Periorbital areas with no swelling, redness, or edema. ENT: Nares patent. No nasal discharge, no septal abnormalities noted. Tympanic membranes are normal and external auditory canals are clear. Oropharynx with no redness, swelling, or masses, exudates, or evidence of obstruction, uvula midline. Mucous membranes moist. Neck: Trachea midline, no thyromegaly or masses palpated, and no cervical lymphadenopathy. Supple, full range of motion without nuchal rigidity, or vertebral point tenderness. No Meningismus. Cardiovascular: Regular rate and rhythm with a normal S1 and S2. No gallops, murmurs, or rubs. Normal PMI, no JVD. No pulse deficits. Respiratory: Lungs have equal breath sounds bilaterally, clear to auscultation and percussion. No rales, rhonchi or wheezes noted. No increased work of breathing, no retractions or nasal flaring. Abdomen/GI: Soft, non-tender, with normal bowel sounds. No distension or tympany. No guarding or rebound. No evidence of tenderness throughout. Back: No spinal tenderness. No costovertebral tenderness. Full range of motion. Skin: Warm, dry with normal turgor. Normal color with no rashes, no lesions, and no evidence of cellulitis. MS/ Extremity: Pulses equal, no cyanosis. Neurovascular intact. Full, normal range of motion. Neuro: Awake and alert, GCS 15, oriented to person, place, time, and situation. Cranial nerves II-XII grossly intact. Motor strength 5/5 in all extremities. Sensory grossly intact. 10:38 Chest/axilla: Inspection: normal, Palpation: tenderness, that is moderate, of the right lateral anterior chest, left lateral anterior chest, right lateral posterior chest and left lateral posterior chest, that totally reproduces the patient's complaints. Vital Signs: 09:51 BP 165 / 63; Pulse 69; Resp 16; Temp 97.7; Pulse Ox 96% ; Weight 99.79 kg; Height 6 ft. jh5 0 in. (182.88 cm); Pain 6/10; 09:51 Body Mass Index 29.84 (99.79 kg, 182.88 cm) jh5 MDM: 09:55 Patient medically screened. jr8 11:10 Data reviewed: vital signs, nurses notes, radiologic studies, CT scan, and as a result, jr8 I will discharge patient. Data interpreted: Pulse oximetry: on room air is 96 %. Interpretation: normal. Counseling: I had a detailed discussion with the patient and/or guardian regarding: the historical points, exam findings, and any diagnostic results supporting the discharge/admit diagnosis, radiology results, the need for outpatient follow up, a family practitioner, to return to the emergency department if symptoms worsen or persist or if there are any questions or concerns that arise at home. ED course: Discussed with patient that there was no acute traumatic findings on his CT scan of his head or his chest. To continue to walk and get up every hour and to try and breathe as normal as he can as he does have some mild atelectasis and does not want to develop pneumonia. If worse or with persistence of symptoms to come back for further evaluation otherwise to follow-up with primary care to ensure that he is improving.. 09/20 10:01 Order name: Glucose, Ancillary Testing; Complete Time: 10:04 EDMS 09/20 10:11 Order name: Thorax Wo Con; Complete Time: 11:07 EDMS 09/20 10:26 Order name: Head Brain Wo Cont; Complete Time: 10:56 EDMS Administered Medications: No medications were administered Disposition: 12:30 Co-signature as Attending Physician, Geronimo Bone DO I was immediately available onsite ms3 in the emergency department for consultation in the care of the patient. Disposition Summary: 09/20/22 11:12 Discharge Ordered Location: Home jr8 Problem: new jr8 Symptoms: have improved jr8 Condition: Stable jr8 Diagnosis - Contusion of thorax jr8 Followup: jr8 - With: Private Physician - When: 2 - 3 days - Reason: Recheck today's complaints, Continuance of care, Re-evaluation by your physician Discharge Instructions: - Discharge Summary Sheet jr8 - Chest Wall Pain jr8 - Blunt Chest Trauma jr8 Forms: - Medication Reconciliation Form jr8 - Thank You Letter jr8 - Antibiotic Education jr8 - Prescription Opioid Use jr8 Signatures: Dispatcher [employer] EDMS Parminder Sabillon PA PA jr8 Geronimo Bone DO DO ms3 Orly Mary RN RN jh5 Corrections: (The following items were deleted from the chart) 10:26 10:18 CT-HEAD/BRAIN W/O CONTRAST ordered. EDMS EDMS
[2022-09-20 11:26] VITALS: BP 165/63; TEMP 97.7; O2SAT 96
== END 2022-09-20 11:21 | disposition home or self-care (01) ==
LOC: ER 09:38
DX: S20.20XA Contusion of thorax, unspecified, initial encounter (principal); E10.9 Type 1 diabetes mellitus without complications; I10 Essential (primary) hypertension
CPT/HCPCS: 70450; 71250; 82947; 99282

== ENCOUNTER 2023-08-10 07:31 | Day surgery (SDC) | payer OTHER ==
[2023-08-10 07:55] LABS: Absolute Lymphocytes (CBC) 1.7 K/uL (0.7-4.9); Hematocrit 43.2 % (39.6-49.0); Lymphocytes % 33.4 % (15.3-44.8); MCV 89.1 fL (80-100); MPV 7.2 fL (7.6-11.3); Platelets 201 thou/uL (152-406); RBC Red Blood Cell Count 4.86 M/uL (4.33-5.43)
[2023-08-10 08:07] LABS: Potassium 3.6 mEq/L (3.5-5.1)
[2023-08-10] MEDS ORDERED: NA CHLORIDE 0.9% 1,000 ML ONE (08:11)
--- NOTE | 2023-08-10 08:56 | RAD REPORT ---
EXAM DESCRIPTION: RAD - Chest Pa And Lat (2 Views) - 08/10/2023 8:34 am CLINICAL HISTORY: pre-op Chest pain. COMPARISON: Chest Single View dated 02/02/2021; Chest Single View dated 10/25/2016; CHEST SINGLE VIEW dated 03/15/2013 FINDINGS: The lungs are clear. The heart is normal in size. No displaced fractures. IMPRESSION: No acute or concerning finding suspected.
[2023-08-10] MEDS: CEFAZOLIN SODIUM 1 GM/VIAL ONE ×2 (09:19→09:29)
[2023-08-10] MEDS ORDERED: LIDOCAINE 2% MPF 5 ML VIAL ONE (09:30)
[2023-08-10] MEDS ORDERED: FENTANYL CITR 100 MCG/2 ML ONE (09:30)
[2023-08-10] MEDS ORDERED: ONDANSETRON 4 MG/2 ML VIAL ONE (09:30)
[2023-08-10] MEDS ORDERED: MIDAZOLAM HCL 2 MG/2 ML INJ ONE (09:30)
[2023-08-10] MEDS ORDERED: propofoL 200 MG/20 ML VIAL IV ONE (09:30)
--- NOTE | 2023-08-10 10:22 | P.BOP ---
Preoperative diagnosis: ulcerated bleeding left upper back subQ mass 3x3cm Postoperative diagnosis: same Primary procedure: Excision of ulcerated left upper back subQ 3x3cm with frozen section Estimated blood loss: <20cc Specimen: ulcerated friable mass Findings: as above. Margins free per Dr Davis. Etiology still unknown on frozen Anesthesia: General Complications: None Transferred to: Recovery Room Condition: Good
[2023-08-10 12:16] VITALS: BP 160/66; TEMP 97; O2SAT 96
--- NOTE | 2023-08-10 18:04 | EKG ---
Test Date: 2023-08-10 Test Time: 07:53:44 Assistant Center Manager: SOREN MEASUREMENT RESULTS: Intervals: Rate: 55 NV: 188 QRSD: 82 QT: 438 QTc: 419 [place]: P: 74 NV: 188 QRS: 70 T: 75 INTERPRETIVE STATEMENTS: Sinus bradycardia with marked sinus arrhythmia Otherwise normal ECG Compared to ECG 02/02/2021 17:17:47 Sinus rhythm no longer present Electronically Signed On 08-10-23 18:02:56 CDT by Obie Lorenzo
--- NOTE | 2023-08-10 19:17 | OP ---
Date of Procedure: 08/10/2023 Surgeon: Holland Kwok MD Preoperative Diagnosis: Ulcerated bleeding left upper back subcutaneous mass 3 x 3 cm. Postoperative Diagnosis: Ulcerated bleeding left upper back subcutaneous mass 3 x 3 cm. Procedure: Excisional biopsy of the ulcer, left upper back, 3 x 3 cm mass subcu with frozen section. Estimated Blood Loss: Less than 20 cc. Specimen: Ulcerated friable mass with active bleeding. Finding: As above. Anesthesia: General plus local. Complications: None. Frozen section still undetermined. There may be some neuroendocrine component. Dr. Davis wants mor e time for definitive diagnosis, although so far the margins are negative. Indications: This is a case of a 68-year-old patient who comes with a mass on the left upper back. Touched and started bleeding, ulcerated, raised from the skin about almost 1.5 cm, fungating. Etiolo gy of that is unknown. He was advised to have wide excision with frozen section. With benefits, alt ernatives, and risks including, but not limited to infection, bleeding, damage to adjacent structures as complication, recurrence, AK, and even . He also understands this may not relieve any sympt oms. He might need more than one surgical intervention. He understood, signed a consent. The area of concern was marked by me and the patient in the holding room. Description Of Procedure: Patient was brought to the operating room, placed in supine position. Ane sthesia was done without complication. Left upper back area was prepped and draped in sterile fashio n. A time-out was called. A wedge incision was made in the skin with gross negative margins and the specimen sent to the pathologist for frozen section. At that moment, we irrigated the area, obtaine d hemostasis, and closed this area with 3-0 chromic in a subcuticular fashion and 3-0 nylon in the sk in. Pathology comes back undetermined. He wants more time to have a final determination or etiology of this problem, at least he clarified that margins were negative. We put triple antibiotics in maria luz t area with sterile dressings and patient sent to recovery in stable condition. Sponge count and ins trument counts were correct. HM/MODL Voice ID: [id number] Report ID: [id number]
--- NOTE | 2023-08-11 06:23 | DS ---
Date of Discharge: 08/10/2023 Diagnosis: Ulcerated bleeding, left upper back subcutaneous mass. Procedure: Excisional biopsy of ulcerated left upper back subcutaneous mass. Condition: Stable. Disposition: Home. Activity: As tolerated. No heavy lifting. Plan: Follow up in my office in 1 week. Call for appointment at [phone]. Keep area dry for 48 anna rs, then may remove the outer dressing and shower and then cover the area with triple antibiotics and sterile dressings. BLANCA/RYLEY Voice ID: [id number] Report ID: [id number]
== END 2023-08-10 11:51 | disposition home or self-care (01) ==
LOC: OR 07:31
PROVIDERS: ATTEND Surgery
PROC: 0JB70ZZ Excision of Back Subcutaneous Tissue and Fascia, Open Approach (ICD-10-PCS; principal; 2023-08-10 08:15)
DX: C43.59 Malignant melanoma of other part of trunk (principal); I10 Essential (primary) hypertension; E11.9 Type 2 diabetes mellitus without complications; Z79.4 Long term (current) use of insulin; Z79.82 Long term (current) use of aspirin
CPT/HCPCS: 93005; 85025; 80048; 36415; 88331; 88332; 88305; 71046; 11603; J2704; J2001; J2250; J3010; J2405; J7030; J0690

== ENCOUNTER 2024-02-17 12:16 | Emergency (ER) | payer OTHER ==
[2024-02-17 13:24] LABS: Specific Gravity 1.025 (1.005-1.030); Sqamous Epithelial None Seen /HPF (None Seen); Urine Bacteria None Seen /HPF (<20); Urine Bilirubin NEGATIVE (Negative); Urine Blood Trace (Negative); Urine Clarity Clear (Clear); Urine Color Yellow (Yellow); Urine Culture Reflex Order REFLEXED; Urine Glucose 4+ (Over) (Negative); Urine Ketones NEGATIVE (Negative); Urine Microscopic Reflex YN ORDER UMIC; Urine Mucus Slight /HPF (None Seen); Urine Nitrite NEGATIVE (Negative); Urine Protein TRACE (Negative); Urine Urobilinogen Normal (Normal); Urine pH 5.5 (5.0-7.0)
--- NOTE | 2024-02-17 13:33 | ER ---
Nurse's Notes [facility] Name: Real Montiel Age: 68 yrs Sex: Male : 1955 Arrival Date: 02/17/2024 Time: 12:16 Bed 19 Private MD: Diagnosis: Other retention of urine-PVR 1500 CC Presentation: 02/16 12:32 Chief complaint: Had skin cancer removed yesterday, has been unable to urinate since hb magana was removed yesterday at 1700/. Coronavirus screen: At this time, the client does not indicate any symptoms associated with coronavirus-19. Ebola Screen: No symptoms or risks identified at this time. Initial Sepsis Screen: Does the patient meet any 2 criteria? No. Patient's initial sepsis screen is negative. Does the patient have a suspected source of infection? No. Patient's initial sepsis screen is negative. Risk Assessment: Do you want to hurt yourself or someone else? Patient reports no desire to harm self or others. Onset of symptoms was February 16, 2024 at 17:00. 12:32 Method Of Arrival: Ambulatory hb 12:32 Acuity: GEOFF 3 hb Triage Assessment: 12:37 General: Appears in no apparent distress. Behavior is calm, cooperative. Pain: Pain hb currently is 3 out of 10 on a pain scale. Neuro: Level of Consciousness is awake, alert, obeys commands, Oriented to person, place, time, situation. Cardiovascular: Patient's skin is warm and dry. Respiratory: Respiratory effort is even, unlabored, Respiratory pattern is regular, symmetrical. Historical: - Allergies: 12:33 No Known Drug Allergies; hb - Home Meds: 12:33 atorvastatin 20 mg oral tablet daily [Active]; carvedilol 25 mg oral tablet 2 times per day [Active]; furosemide 40 mg oral tablet daily [Active]; irbesartan 300 mg oral tablet daily [Active]; insulin [Active]; Fish Oil oral 2400 mcg daily [Active]; tramadol 50 mg Oral tablet as needed [Active]; doxycycline hyclate 100 mg Oral tablet 2 times per day [Active]; minocycline 100 mg Oral capsule 2 times per day [Active]; - PMHx: 12:33 Diabetes - IDDM; Diabetes Type 1; Hyperlipidemia; Hypertension; Myocardial infarction; hb Skin cancer; - PSHx: 12:33 carpal tunnel; eye surgery (R); hand surgery; Tonsillectomy; wrist surgery; hb - Immunization history:: Adult Immunizations up to date. - Infectious Disease History:: Denies. - Social history:: Smoking status: Patient denies any tobacco usage or history of. Screenin:45 [facility] ED Fall Risk Assessment (Adult) History of falling in the last 3 months, kc6 including since admission No falls in past 3 months (0 pts) Confusion or Disorientation No (0 pts) Intoxicated or Sedated No (0 pts) Impaired Gait No (0 pts) Mobility Assist Device Used No (0 pt) Altered Elimination No (0 pt) Score/Fall Risk Level 0 - 2 = Low Risk. Abuse screen: Denies threats or abuse. Denies injuries from another. Nutritional screening: No deficits noted. Tuberculosis screening: No symptoms or risk factors identified. Assessment: 12:45 General: Appears in no apparent distress. comfortable, well groomed, well developed, kc6 Behavior is calm, cooperative, appropriate for age. Pain: Complains of pain in suprapubic area Quality of pain is described as crampy. Neuro: Level of Consciousness is awake, alert, obeys commands, Oriented to person, place, time, situation, Appropriate for age. Cardiovascular: Capillary refill < 3 seconds. Respiratory: Airway is patent Trachea midline Respiratory effort is even, unlabored, Respiratory pattern is regular, symmetrical. GI: No signs and/or symptoms were reported involving the gastrointestinal system. : Reports inability to void, since 02/16/24 1700. EENT: No signs and/or symptoms were reported regarding the EENT system. Derm: No signs and/or symptoms reported regarding the dermatologic system. Skin is healthy with good turgor, Skin is normal, Wound noted left leg. Musculoskeletal: No signs and/or symptoms reported regarding the musculoskeletal system. Circulation, motion, and sensation intact. Capillary refill < 3 seconds, Range of motion: intact in all extremities. 13:55 Reassessment: Patient appears in no apparent distress at this time. No changes from kc6 previously documented assessment. Patient and/or family updated on plan of care and expected duration. Pain level reassessed. Patient is alert, oriented x 3, equal unlabored respirations, skin warm/dry/pink. Patient states feeling better. Patient states symptoms have improved. Vital Signs: 12:32 BP 170 / 69; Pulse 86; Resp 16; Temp 98.1(O); Pulse Ox 96% on R/A; Weight 122.47 kg; hb Height 6 ft. 0 in. ; Pain 3/10; 12:32 Body Mass Index 36.62 (122.47 kg, 182.88 cm) hb 12:32 Pain Scale: Adult hb ED Course: 12:19 Patient arrived in ED. im 12:21 Tyson Olson MD is Attending Physician. [facility] 12:25 Carolina Vegas, PAT is Primary Nurse. kc6 12:33 Triage completed. hb 12:37 Arm band placed on. hb 12:45 Patient has correct armband on for positive identification. Placed in gown. Bed in low kc6 position. Call light in reach. Side rails up X 1. Adult w/ patient. Client placed on continuous cardiac and pulse oximetry monitoring. NIBP monitoring applied. 13:06 Urinalysis w/ reflexes Sent. kc6 13:07 Magana cath inserted, using sterile technique, 18 Fr., by al, balloon inflated, to kc6 gravity drainage, clamped. urine specimen collected. returned michael urine. Patient tolerated well. 13:32 Zach Funes MD is Referral Physician. [facility] 13:56 Provided Education on: MAGANA CATH CARE AT HOME. 6 13:56 No provider procedures requiring assistance completed. Patient did not have IV access kc6 during this emergency room visit. Administered Medications: No medications were administered Medication: 13:56 VIS not applicable for this client. kc6 Output: 13:07 Urine: 1500ml (Magana); Total: 1500ml. kc6 Outcome: 13:33 Discharge ordered by . [facility] 13:56 Discharged to home ambulatory, with significant other, kc 13:56 Condition: improved 13:56 Discharge instructions given to patient, significant other, Instructed on discharge instructions, follow up and referral plans. medication usage, Demonstrated understanding of instructions, follow-up care, medications, Prescriptions given X 2, 14:16 Patient left the ED. kc6 Signatures: Tyson Olson MD MD cha Baxter, Heather, PAT STEWART Carolina Vegas RN RN kc6 Ivelisse Ron im
--- NOTE | 2024-02-17 13:33 | EDPHYS ---
Physician Documentation [facility] Name: Real Montiel Age: 68 yrs Sex: Male : 1955 Arrival Date: 02/17/2024 Time: 12:16 Bed 19 Private MD: ED Physician Tyson Olson HPI: 02/16 13:21 This 68 yrs old Male presents to ER via Ambulatory with complaints of Urinary fariha Problem. 13:21 The patient presents with urinary symptoms, urinary frequency, hesitancy to initiate fariha urine stream, retention. Onset: The symptoms/episode began/occurred today, yesterday. Modifying factors: The symptoms are alleviated by nothing, the symptoms are aggravated by nothing. Severity of symptoms: At their worst the symptoms were mild, in the emergency department the symptoms are unchanged. The patient has not experienced similar symptoms in the past. Historical: - Allergies: 12:33 No Known Drug Allergies; hb - Home Meds: 12:33 atorvastatin 20 mg oral tablet daily [Active]; carvedilol 25 mg oral tablet 2 times per hb day [Active]; furosemide 40 mg oral tablet daily [Active]; irbesartan 300 mg oral tablet daily [Active]; insulin [Active]; Fish Oil oral 2400 mcg daily [Active]; tramadol 50 mg Oral tablet as needed [Active]; doxycycline hyclate 100 mg Oral tablet 2 times per day [Active]; minocycline 100 mg Oral capsule 2 times per day [Active]; - PMHx: 12:33 Diabetes - IDDM; Diabetes Type 1; Hyperlipidemia; Hypertension; Myocardial infarction; hb Skin cancer; - PSHx: 12:33 carpal tunnel; eye surgery (R); hand surgery; Tonsillectomy; wrist surgery; hb - Immunization history:: Adult Immunizations up to date. - Infectious Disease History:: Denies. - Social history:: Smoking status: Patient denies any tobacco usage or history of. ROS: 13:27 Constitutional: Negative for fever, chills, and weight loss, Eyes: Negative for injury, fariha pain, redness, and discharge, ENT: Negative for injury, pain, and discharge, Neck: Negative for injury, pain, and swelling, Cardiovascular: Negative for chest pain, palpitations, and edema, Respiratory: Negative for shortness of breath, cough, wheezing, and pleuritic chest pain, Abdomen/GI: Negative for abdominal pain, nausea, vomiting, diarrhea, and constipation, Back: Negative for injury and pain, MS/Extremity: Negative for injury and deformity, Skin: Negative for injury, rash, and discoloration, Neuro: Negative for headache, weakness, numbness, tingling, and seizure, Psych: Negative for depression, anxiety, suicide ideation, homicidal ideation, and hallucinations, Allergy/Immunology: Negative for hives, rash, and allergies, Endocrine: Negative for neck swelling, polydipsia, polyuria, polyphagia, and marked weight changes, Hematologic/Lymphatic: Negative for swollen nodes, abnormal bleeding, and unusual bruising, 13:27 : Positive for pelvic pain, small amounts, Exam: 13:27 Constitutional: This is a well developed, well nourished patient who is awake, alert, fariha and in no acute distress. Head/Face: Normocephalic, atraumatic. Eyes: Pupils equal round and reactive to light, extra-ocular motions intact. Lids and lashes normal. Conjunctiva and sclera are non-icteric and not injected. Cornea within normal limits. Periorbital areas with no swelling, redness, or edema. ENT: Nares patent. No nasal discharge, no septal abnormalities noted. Tympanic membranes are normal and external auditory canals are clear. Oropharynx with no redness, swelling, or masses, exudates, or evidence of obstruction, uvula midline. Mucous membranes moist. Neck: Trachea midline, no thyromegaly or masses palpated, and no cervical lymphadenopathy. Supple, full range of motion without nuchal rigidity, or vertebral point tenderness. No Meningismus. Chest/axilla: Normal chest wall appearance and motion. Nontender with no deformity. No lesions are appreciated. Cardiovascular: Regular rate and rhythm with a normal S1 and S2. No gallops, murmurs, or rubs. Normal PMI, no JVD. No pulse deficits. Respiratory: Lungs have equal breath sounds bilaterally, clear to auscultation and percussion. No rales, rhonchi or wheezes noted. No increased work of breathing, no retractions or nasal flaring. Back: No spinal tenderness. No costovertebral tenderness. Full range of motion. Male : Normal genitalia with no discharge or lesions. Skin: Warm, dry with normal turgor. Normal color with no rashes, no lesions, and no evidence of cellulitis. MS/ Extremity: Pulses equal, no cyanosis. Neurovascular intact. Full, normal range of motion. Neuro: Awake and alert, GCS 15, oriented to person, place, time, and situation. Cranial nerves II-XII grossly intact. Motor strength 5/5 in all extremities. Sensory grossly intact. Cerebellar exam normal. Normal gait. Psych: Awake, alert, with orientation to person, place and time. Behavior, mood, and affect are within normal limits. 13:27 Abdomen/GI: Inspection: distension, Bowel sounds: normal, Palpation: mild abdominal tenderness, in the suprapubic area, Liver: no appreciated palpable abnormalities, Hernia: not appreciated, Vital Signs: 12:32 BP 170 / 69; Pulse 86; Resp 16; Temp 98.1(O); Pulse Ox 96% on R/A; Weight 122.47 kg; hb Height 6 ft. 0 in. ; Pain 3/10; 12:32 Body Mass Index 36.62 (122.47 kg, 182.88 cm) hb 12:32 Pain Scale: Adult hb MDM: 12:21 Patient medically screened. [facility] 13:28 Differential diagnosis: nonspecific abdominal pain, UTI, urinary retention, fariha prostatitis, urethritis. Data reviewed: vital signs, nurses notes, lab test result(s), urinalysis. Consideration of Admission/Observation Escalation of care including admission/observation considered. I considered the following discharge prescriptions or medication management in the emergency department Medications were administered in the Emergency Department. See MAR. Test considered but Not performed: Labs: no cbc, no comp met. Historians other than the Patient: Spouse/Significant Other: informed. Care significantly affected by the following chronic conditions: Diabetes, Hypertension, Obesity. Counseling: I had a detailed discussion with the patient and/or guardian regarding the historical points, exam findings, and any diagnostic results supporting the discharge/admit diagnosis, lab results, the need for outpatient follow up, for definitive care, an uniformer, a urologist. 02/16 12:22 Order name: Urinalysis w/ reflexes [facility] 02/16 13:28 Order name: Urine Culture EDMS 02/16 12:32 Order name: Lambert; Complete Time: 13:06 fariha 02/16 12:32 Order name: Lambert Leg Bag; Complete Time: 13:06 [facility] Administered Medications: No medications were administered Disposition Summary: 02/17/24 13:33 Discharge Ordered Notes: Location: Home [facility] Problem: new fariha Symptoms: have improved fariha Condition: Stable fariha Diagnosis - Other retention of urine - PVR 1500 CC fariha Followup: fariha - With: Private Physician - When: 2 - 3 days - Reason: Recheck today's complaints, Continuance of care, Re-evaluation by your physician Followup: fariha - With: Zach Funes MD - When: 2 - 3 days - Reason: Recheck today's complaints, Re-evaluation by your physician Discharge Instructions: - Discharge Summary Sheet fariha - Indwelling Urinary Catheter Care, Adult fariha - Acute Urinary Retention, Male fariha - Acute Urinary Retention, Male, [id number] fariha - Indwelling Urinary Catheter Care, Adult, [id number] [facility] Forms: - Medication Reconciliation Form [facility] - Antibiotic Education fariha - Prescription Opioid Use fariha - Patient Portal Instructions [facility] - Leadership Thank You Letter [facility] Prescriptions: - Flomax 0.4 mg Oral capsule - take 1 capsule ORAL route every 24 hours; 30 capsule; Refills: 0, Product [facility] Selection Permitted - Cipro 250 mg Oral tablet - take 1 tablet ORAL route every 12 hours; 10 tablet; Refills: 0, Product [facility] Selection Permitted Signatures: Dispatcher [employer] Tyson Anton MD MD cha Baxter, Heather, RN RN
[2024-02-17 14:41] VITALS: BP 170/69; TEMP 98.1; O2SAT 96
== END 2024-02-17 14:16 | disposition home or self-care (01) ==
LOC: ER 12:16
DX: R33.8 Other retention of urine (principal); E10.9 Type 1 diabetes mellitus without complications; Z79.4 Long term (current) use of insulin; I10 Essential (primary) hypertension; I25.2 Old myocardial infarction
CPT/HCPCS: 51702; 81001; 87086; 87088; 99284

== ENCOUNTER 2024-12-24 07:26 | Day surgery (SDC) | payer OTHER ==
[2024-12-24] MEDS ORDERED: SUCCINYLCHOLINE 20 MG/ML (10 ML) IV ONE (07:50)
[2024-12-24] MEDS: NA CHLORIDE 0.9% 1,000 ML ONE (08:15)
[2024-12-24] MEDS ORDERED: LIDOCAINE 1% MPF 5 ML VIAL ONE (08:30)
[2024-12-24] MEDS ORDERED: EPHEDRINE SULF 50 MG/ML VIAL ONE (08:30)
[2024-12-24] MEDS ORDERED: propofoL 200 MG/20 ML VIAL IV ONE (08:30)
[2024-12-24 10:31] VITALS: BP 121/73; TEMP 97.4; O2SAT 97
--- NOTE | 2024-12-26 12:51 | EKG ---
Test Date: 2024-12-21 Test Time: 15:13:24 Pewter Finisher: MEASUREMENT RESULTS: Intervals: Rate: 49 DC: 166 QRSD: 80 QT: 422 QTc: 381 [place]: P: 41 DC: 166 QRS: 67 T: 76 INTERPRETIVE STATEMENTS: Marked sinus bradycardia Low voltage QRS Abnormal ECG Compared to ECG 08/10/2023 07:53:44 Low QRS voltage now present Sinus arrhythmia no longer present Electronically Signed On 12-26-24 12:33:14 CDT by Pardeep Jane
== END 2024-12-24 10:09 | disposition home or self-care (01) ==
LOC: OR 07:26
PROVIDERS: ATTEND Surgery
PROC: 0DBM8ZX Excision of Descending Colon, Via Natural or Artificial Opening Endoscopic, Diagnostic (ICD-10-PCS; principal; 2024-12-24 08:30)
DX: Z12.11 Encounter for screening for malignant neoplasm of colon (principal); D12.4 Benign neoplasm of descending colon; K64.4 Residual hemorrhoidal skin tags; K64.8 Other hemorrhoids
CPT/HCPCS: 93005; 88305; 45384; J2704; J2003; J7030

== ENCOUNTER 2025-07-17 07:05 | Day surgery (SDC) | payer OTHER ==
[2025-07-17 08:38] LABS: MPV 7.5 fL (7.6-11.3)
[2025-07-17] MEDS ORDERED: NA CHLORIDE 0.9% 1,000 ML ONE (08:38)
[2025-07-17] MEDS ORDERED: ONDANSETRON 4 MG/2 ML VIAL ONE (08:39)
[2025-07-17] MEDS ORDERED: NALOXONE HCL 2 MG/2 ML VIAL ONE (08:39)
[2025-07-17] MEDS ORDERED: FLUMAZENIL 0.1 MG/ML (5 mL VIAL) IV ONE (08:39)
[2025-07-17 08:47] LABS: PT Prothrombin Time 13.6 SECONDS (10-13.0); PTT, Activated Partial Thromb 39.1 SECONDS (27.2-37.4); Protime INR 1.21
[2025-07-17] MEDS ORDERED: MIDAZOLAM HCL 2 MG/2 ML INJ ONE (09:07)
[2025-07-17] MEDS ORDERED: FENTANYL CITR 100 MCG/2 ML ONE (09:07)
--- NOTE | 2025-07-17 12:01 | RAD REPORT ---
EXAMINATION: ONE VIEW CHEST XR CLINICAL INDICATION: Male, 70 years old.,S/P RIGHT LUNG BIPSY, R/O PNEUMOTHORAX TECHNIQUE: Frontal chest projection is submitted. Examination is limited by patient positioning and t echnique. COMPARISON: 03/18/2025 FINDINGS: Left basilar pleural-parenchymal opacity, new. Postbiopsy changes in the right basal lung. Trace righ t apical pneumothorax, pleural separation measures 2 mm.. The heart is normal in size. Mediastinal contours are unremarkable. IMPRESSION: Trace right apical pneumothorax. New left basilar pleural-parenchymal opacity, could relate to underlying atelectasis or pneumonia.
[2025-07-17 12:07] VITALS: BMI 33.9
[2025-07-17 12:58] VITALS: TEMP 97
--- NOTE | 2025-07-17 13:33 | RAD REPORT ---
EXAMINATION: Lung Biopsy Perc w/CT INDICATION: RIGHT LUNG BIOPSY Pre-procedure diagnosis: Right lung mass Post-procedure diagnosis: Same as above. COMPLICATIONS: No immediate complications. PROCEDURE DETAILS: Consent: Informed consent for the procedure was obtained following discussion of the risks, benefits and alternatives with the patient. Time-out was performed prior to the procedure. Sedation: Moderate sedation (conscious sedation) Administered by: Nurse, or other independent traine d observer, with level of consciousness and vital signs continuously monitored. Total sedation administered: 1 mg Versed and 100 mcg Fentanyl. Total intra-service sedation time: 36 minutes. Biopsy: The area was prepped and draped in the usual sterile fashion. Initial scanning revealed . Loc al anesthesia was administered. Under CT guidance, an 18 gauge biopsy needle was advanced to the target and biopsy was performed. Number of specimens/passes: 5 Additional sampling description: None. Preliminary assessment of sample adequacy: Adequate The biopsy needle was removed and a sterile dressing was applied. Post-biopsy imaging findings: No immediate complications seen. Additional Details: Estimated blood loss: Less than 10 mL. IMPRESSION: Technically successful CT-guided biopsy of right lower lobe mass/nodule.
--- NOTE | 2025-07-17 13:51 | RAD REPORT ---
EXAM: Chest Single View HISTORY: 70 years Male S/P RIGHT LUNG BIOPSY, R/O PNEUMOTHORAX COMPARISON: 07/17/25 FINDINGS: LUNGS/PLEURA: No appreciable pneumothorax following right-sided lung biopsy. Small left pleural effus ion with probable underlying atelectasis is similar. CARDIAC/MEDIASTINUM: Stable enlargement. UPPER ABDOMEN: No significant abnormality. BONES: Sternotomy. No acute abnormality. LINES/TUBES/OTHER: N/A IMPRESSION: No appreciable pneumothorax following right-sided lung biopsy.
[2025-07-17 15:03] VITALS: BP 150/61; O2SAT 96
--- NOTE | 2025-07-23 17:28 | RAD REPORT ---
EXAM:Mod Sed by Rad Init 15 Mins HISTORY: FINDINGS EXAM:Mod Sed by Rad Init 15 Mins HISTORY: FINDINGS. Documentation for moderate sedation. Transcribed Date/Time: 07/23/2025 5:28 PM
== END 2025-07-17 14:25 | disposition home or self-care (01) ==
LOC: DS 07:05
PROVIDERS: ATTEND Internal Medicine Hematology & Oncology
PROC: 0BBK3ZX Excision of Right Lung, Percutaneous Approach, Diagnostic (ICD-10-PCS; principal; 2025-07-17)
DX: C43.59 Malignant melanoma of other part of trunk (principal)
CPT/HCPCS: 36415; 85049; 85610; 88305; 85730; 77012; 71045 ×2; 32408; J2250; J3010; J7030; 99152; J2312; J2405